=== PATIENT | female | born 1995 | race Caucasian/White ===

== ENCOUNTER 2017-01-11 22:40 | Emergency (ER) | payer BC ==
--- NOTE | 2017-01-11 23:04 | ED Physician Documentation ---
PD HPI UPPER EXT INJURY - Stated complaint Stated Complaint: R ARM INJURY - Chief complaint Chief Complaint: Ext Problem - History obtained from History obtained from: Patient - History of Present Illness Location: Right, Shoulder, Arm Type of injury: Blunt / blow Where injury occurred: Home Timing - onset: How many hours ago (1) Timing - details: Abrupt onset Improved by: Immobilization Worsened by: Moving, Palpating Associated symptoms: Tingling, Discolored Contributing factors: No: Anticoagulated, Prior ortho surgery Similar symptoms before: Has not had sx before Recently seen: Not recently seen - Additonal information Additional information: Patient is a 21 year old female with a history of ptsd and anxiety who is presenting to the emergency department for left arm pain. patient states that someone was sliding down a banister and slid off and the patient tried to catch him and hurt her arm. She states that the person weighed approximately 190lbs. Patient denied any head trauma, loc or pain anywhere else in her body. Review of Systems Constitutional: denies: Fever, Chills Eyes: denies: Decreased vision Ears: denies: Ear pain, Drainage/discharge Nose: denies: Rhinorrhea / runny nose, Congestion, Epistaxis Cardiac: denies: Chest pain / pressure, Palpitations Respiratory: denies: Cough GI: denies: Abdominal Pain, Nausea, Vomiting Skin: reports: Rash, Other (ecchymosis). denies: Laceration (s) Musculoskeletal: reports: Extremity pain. denies: Neck pain, Back pain, Joint pain, Extremity swelling Neurologic: reports: Numbness. 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: None : None HEENT: None Psych: Depression, Anxiety Musculoskeletal: None Derm: None - Past Surgical History Past Surgical History: Yes - Present Medications Home Medications: Ambulatory Orders Medication Instructions Recorded Confirmed Alprazolam [Xanax] 0.25 mg PO BID 03/17/15 01/11/17 Levothyroxine [Synthroid] 25 mcg PO BID 03/17/15 01/11/17 LORazepam [Ativan] 0.5 - 1 mg PO Q6H PRN #15 tablet 03/18/15 Dextroamphetamine/Amphetamine 10 mg PO BID 06/08/16 08/11/17 [Adderall 10 mg Tablet] LORazepam [Ativan] 0.5 mg PO BID PRN #20 tablet 11/09/15 Lorazepam [Ativan] 1 mg PO TID PRN #10 tablet 11/16/15 - Allergies Allergies/Adverse Reactions: Allergies Allergy/AdvReac Type Severity Reaction Status Date / Time bupropion Allergy Anaphylaxis Verified 01/11/17 22:50 ibuprofen Allergy Anaphylaxis Verified 01/11/17 22:50 - Social History Does the pt smoke?: Yes Smoking Status: Current every day smoker Does the pt drink ETOH?: No Does the pt have substance abuse?: No - Immunizations Immunizations are current?: Yes - POLST Patient has POLST: No PD ED PE NORMAL - Vitals Vital signs reviewed: Yes - General General: Alert and oriented X 3, Well developed/nourished - HEENT HEENT: Atraumatic, PERRL - Neck Neck: No bony TTP - Respiratory Respiratory: No respiratory distress - Abdomen Abdomen: Non distended - Neuro Neuro: Alert and oriented X 3, Normal speech - Psych Psych: Normal mood, Normal affect PD ED PE EXPANDED - Cardiac Cardiac: Tachy - Extremities Extremities: Right shoulder (tenderness to palpation of right shoulder, full rom ), Right elbow (tenderness, full rom), Right hand (tenderness and swelling of right hand) Results - Vitals Vitals: Vital Signs - 24 hr 01/11/17 22:48 Temperature 36.7 C Heart Rate 133 H Respiratory 17 Rate Blood Pressure 163/94 H O2 Saturation 99 Oxygen O2 Source Room air - Rads (name of study) shoulder x-ray Radiology: Final report received (no acute fracture or dislocation), EMP read contemporaneously elbow x-ray Radiology: Final report received, EMP read contemporaneously (no acute fracture or dislocaiton) hand x-ray Radiology: Final report received, EMP read contemporaneously (no acute fracture or dislocation) PD MEDICAL DECISION MAKING - ED course Complexity details: reviewed old records, reviewed results, re-evaluated patient , considered differential, d/w patient ED course: Patient was seen and examined at bedside. patient was sent for imaging. when patient returned patient was treated with tylenol and given ice. films were reviewed. there was no acute fracture or dislocation. Patient required no further work up and was stable for discharge [facility] outpatient follow up. Departure - Departure Clinical Impression: Muscle strain Condition: Good Instructions: ED Strain Muscle Ext Follow-Up: Zurdo Vogel MD [Primary Care Provider] - As Needed Comments: Your diagnostics today were within normal limits. there was no acute fracture or dislocation. you should ice your wounds and take tylenol for pain. You should follow up with your pmd if your symptoms persist for the next few weeks.
[2017-01-11] MEDS ORDERED: ACETAMINOPHEN 500 MG TABLET PO STA (23:43)
[2017-01-11] MEDS ORDERED: ACETAMINOPHEN 500 MG TABLET PO ONE (23:55)
--- NOTE | 2017-01-11 23:56 | XRAY Preliminary Report ---
Exam: XR Elbow 2 View RT IMPRESSION: 1. No fracture or dislocation seen. [facility] SITE ID: [id number]
--- NOTE | 2017-01-11 23:58 | XRAY Preliminary Report ---
Exam: XR Hand 3 View RT IMPRESSION: 1. No acute fracture or dislocation seen. [facility] SITE ID: [id number]
--- NOTE | 2017-01-11 23:58 | XRAY Preliminary Report ---
Exam: XR Shoulder 3 View RT IMPRESSION: 1. No acute abnormality seen in the shoulder. [facility] SITE ID: [id number]
--- NOTE | 2017-01-11 23:59 | XRAY Report ---
EXAM: RIGHT ELBOW RADIOGRAPHY EXAM DATE: 01/11/2017 11:03 PM. CLINICAL HISTORY: Pain after injury. COMPARISON: None. TECHNIQUE: 2 views. FINDINGS: Bones: No acute fracture seen. Joints: No dislocation. Joint spaces appear intact. No joint effusion identified. Soft Tissues: Grossly unremarkable. IMPRESSION: 1. No fracture or dislocation seen. [facility] Referring Provider Line: [phone] SITE ID: [id number]
--- NOTE | 2017-01-12 | XRAY Report ---
EXAM: RIGHT HAND RADIOGRAPHY EXAM DATE: 01/11/2017 11:12 PM. CLINICAL HISTORY: Pain after injury. COMPARISON: None. TECHNIQUE: 3 views. FINDINGS: Bones: No acute fracture seen. Joints: No dislocation. Joint spaces appear intact. Soft Tissues: Mild soft tissue swelling. IMPRESSION: 1. No acute fracture or dislocation seen. [facility] Referring Provider Line: [phone] SITE ID: [id number]
--- NOTE | 2017-01-12 00:01 | XRAY Report ---
EXAM: RIGHT SHOULDER RADIOGRAPHY EXAM DATE: 01/11/2017 11:03 PM. CLINICAL HISTORY: Pain after injury. COMPARISON: None. TECHNIQUE: 3 views. FINDINGS: Bones: No acute fracture seen. Joints: The glenohumeral and acromioclavicular joints are preserved. Soft tissues: Visualized hemithorax is unremarkable. IMPRESSION: 1. No acute abnormality seen in the shoulder. [facility] Referring Provider Line: [phone] SITE ID: [id number]
[2017-01-12 00:35] VITALS: BP 137/87
== END 2017-01-12 00:26 | disposition home or self-care (01) ==
LOC: ED 22:40
DX: S46.911A Strain of unspecified muscle, fascia and tendon at shoulder and upper arm level, right arm, initial encounter (principal); X50.0XXA Overexertion from strenuous movement or load, initial encounter; Y92.019 Unspecified place in single-family (private) house as the place of occurrence of the external cause; F41.9 Anxiety disorder, unspecified; E03.9 Hypothyroidism, unspecified; F17.200 Nicotine dependence, unspecified, uncomplicated
CPT/HCPCS: 73030; 73070; 73130; 99283; A9270

== ENCOUNTER 2017-02-11 16:42 | Outpatient (CLI) | payer BC ==
[2017-02-11 18:46] LABS: BILIRUBIN,URINE NEGATIVE (NEGATIVE)
[2017-02-11 18:49] LABS: UR CULTURE IF IND INDICATED
== END 2017-02-11 16:43 | disposition home or self-care (01) ==
LOC: LAB.R 16:42
PROVIDERS: ATTEND Physician Assistant Medical
DX: R30.0 Dysuria (principal)
CPT/HCPCS: 81001; 87086

== ENCOUNTER 2017-03-09 03:25 | Emergency (ER) | payer BC ==
[2017-03-09 03:36] VITALS: BP 126/81
--- NOTE | 2017-03-09 03:44 | ED Physician Documentation ---
PD HPI LOWER EXT INJURY - Stated complaint Stated Complaint: R ANKLE INJURY/PAIN - Chief complaint Chief Complaint: Trauma Ext - History obtained from History obtained from: Patient, Friend (BF) - History of Present Illness PD HPI LOW EXT INJURY LOCATION: Right, Knee, Ankle, Foot Type of injury: Fall Where injury occurred: Home Timing - onset: Today (tonight) Timing - duration: Hours Timing - details: Abrupt onset Pain level now: 6 Improved by: Rest Worsened by: Moving, Palpating Associated symptoms: Swelling Recently seen: Emergency Dept (2 months ago for extremity injury) - Additional information Additional information: c/o right knee, ankle, and foot pain after tripping and falling while walking her dog earlier tonight. 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 : None HEENT: None Psych: Depression, Anxiety Musculoskeletal: None Derm: None - Past Surgical History Past Surgical History: Yes - Present Medications Home Medications: Ambulatory Orders Medication Instructions Recorded Confirmed Alprazolam [Xanax] 0.25 mg PO BID 03/17/15 03/09/17 Levothyroxine [Synthroid] 25 mcg PO BID 03/17/15 03/09/17 Escitalopram [Lexapro] 1 tab PO DAILY 03/09/17 03/09/17 Hydrocodone/Acetaminophen [Lortab 5 - 10 ml PO Q6HR PRN #60 solution 03/09/17 10 mg-300 mg/15 ml Elxr] - Allergies Allergies/Adverse Reactions: Allergies Allergy/AdvReac Type Severity Reaction Status Date / Time bupropion Allergy Anaphylaxis Verified 03/09/17 03:30 ibuprofen Allergy Anaphylaxis Verified 03/09/17 03:30 - Social History Does the pt smoke?: Yes Smoking Status: Current every day smoker Does the pt drink ETOH?: No Does the pt have substance abuse?: No - Immunizations Immunizations are current?: Yes - POLST Patient has POLST: No PD ED PE NORMAL - Vitals Vital signs reviewed: Yes - General General: No acute distress, Well developed/nourished, Other (drowsy, difficult to awaken fully and consistently ) - Derm Derm: Normal color, Warm and dry - Neuro Neuro: No motor deficit, No sensory deficit PD ED PE EXPANDED - Extremities Extremities: Tenderness, Limited ROM, Swelling, Right knee, Right ankle Results - Vitals Vitals: Vital Signs - 24 hr 03/09/17 03:32 Temperature 36.0 C L Heart Rate 116 H Respiratory 18 Rate Blood Pressure 126/81 H O2 Saturation 98 Oxygen O2 Source Room air - Rads (name of study) right ankle xrays Radiology: Prelim report reviewed, See rad report right knee xrays Radiology: Prelim report reviewed, See rad report PD MEDICAL DECISION MAKING - ED course Complexity details: reviewed old records, reviewed results, re-evaluated patient , considered differential, d/w patient ED course: on initial evaluation, I found the patient drowsy and difficult to awaken and keep awake. During ED stay, she became increasingly awake and alert. She was quite anxious at times. She complained of nausea and had episode of emesis, given zofran with improvement. Xray results were reviewed with patient. I offered pain medication, she says she is allergic to ibuprofen and has difficulty swallowing pills; lortab elixr was given. crutches and knee immobilizer provided Departure - Departure Disposition: 01 Home, Self Care Clinical Impression: Ankle sprain Qualifiers: Encounter type: initial encounter Involved ligament of ankle: unspecified ligament Laterality: right Qualified Code(s): S93.401A - Sprain of unspecified ligament of right ankle, initial encounter Right knee sprain Qualifiers: Encounter type: initial encounter Involved ligament of knee: unspecified ligament Qualified Code(s): S83.91XA - Sprain of unspecified site of right knee , initial encounter Condition: Good Instructions: ED Sprain Ankle W X Ray, ED Crutch Walking, ED Immobilizer Knee, ED Sprain Knee Follow-Up: Froilan Reich MD [Provider Admit Priv/Credential] - Within 1 week Prescriptions: Hydrocodone/Acetaminophen [Lortab 10 mg-300 mg/15 ml Elxr] 5 - 10 ml PO Q6HR PRN #60 solution PRN Reason: Pain Discharge Date/Time: 03/09/17 07:27
--- NOTE | 2017-03-09 05:09 | XRAY Preliminary Report ---
Exam: XR Ankle 3 View RT IMPRESSION: Moderate lateral soft tissue swelling without evident displaced fracture. [facility] SITE ID: [id number]
--- NOTE | 2017-03-09 05:11 | XRAY Report ---
EXAM: RIGHT ANKLE RADIOGRAPHY EXAM DATE: 03/09/2017 04:37 AM. CLINICAL HISTORY: Fall, injury to the right ankle. Generalized ankle pain. COMPARISON: None. TECHNIQUE: 3 views. FINDINGS: Bones: Normal. No fractures or bone lesions. Joints: Normal. No effusion. No subluxations. The ankle mortise is normally aligned. Soft Tissues: Moderate lateral soft tissue swelling. IMPRESSION: Moderate lateral soft tissue swelling without evident displaced fracture. [facility] Referring Provider Line: [phone] SITE ID: [id number]
[2017-03-09] MEDS ORDERED: ONDANSETRON ODT 4 MG TABLET TL STA (06:12)
[2017-03-09] MEDS ORDERED: ONDANSETRON ODT 4 MG TABLET ONE (06:21)
--- NOTE | 2017-03-09 06:41 | XRAY Preliminary Report ---
Exam: XR Knee 4 View RT IMPRESSION: Normal knee radiography. [facility] SITE ID: [id number]
--- NOTE | 2017-03-09 06:41 | XRAY Report ---
EXAM: RIGHT KNEE RADIOGRAPHY EXAM DATE: 03/09/2017 06:03 AM. CLINICAL HISTORY: Injury, pain, tenderness. COMPARISON: None. TECHNIQUE: 3 views. FINDINGS: Bones: Normal. No fractures or bone lesions. Joints: Normal. No effusion. No subluxations. Soft Tissues: Normal. No soft tissue swelling. IMPRESSION: Normal knee radiography. [facility] Referring Provider Line: [phone] SITE ID: [id number]
[2017-03-09] MEDS ORDERED: HYDROcodone/ACETAM 7.5 MG/325 MG 15 ML UDC PO STA (07:01)
[2017-03-09] MEDS ORDERED: HYDROcodone/ACETAM 7.5 MG/325 MG 15 ML UDC PO ONE (07:20)
== END 2017-03-09 07:27 | disposition home or self-care (01) ==
LOC: ED 03:25
DX: S83.91XA Sprain of unspecified site of right knee, initial encounter (principal); S93.401A Sprain of unspecified ligament of right ankle, initial encounter; W01.0XXA Fall on same level from slipping, tripping and stumbling without subsequent striking against object, initial encounter; Y93.K1 Activity, walking an animal; R11.0 Nausea; F17.200 Nicotine dependence, unspecified, uncomplicated; Y92.009 Unspecified place in unspecified non-institutional (private) residence as the place of occurrence of the external cause
CPT/HCPCS: 29530; 73564; 73610; 99283; 99284; A9270; Q0162

== ENCOUNTER 2017-03-28 08:00 | Outpatient (CLI) | payer BC | END 2017-03-28 08:01 | disposition home or self-care (01) | LOC: LAB.R 08:00 | PROVIDERS: ATTEND Obstetrics & Gynecology | DX: R82.99 Other abnormal findings in urine (principal) | CPT/HCPCS: 87086 ==

== ENCOUNTER 2017-07-16 08:00 | Outpatient (CLI) | payer BC | END 2017-07-16 23:59 | disposition home or self-care (01) | LOC: LAB.R 08:00 | PROVIDERS: ATTEND Obstetrics & Gynecology | DX: Z11.3 Encounter for screening for infections with a predominantly sexual mode of transmission (principal) | CPT/HCPCS: 87491; 87591 ==

== ENCOUNTER 2017-07-25 10:48 | Emergency (ER) | payer BC ==
[2017-07-25 11:22] LABS: BASOPHILS % (AUTO) 0.2 %; EOSINOPHILS # (AUTO) 0.1 10^3/uL (0.0-0.7); EOSINOPHILS % (AUTO) 0.7 %; HGB - HEMOGLOBIN 13.3 g/dL (12.0-16.0); LYMPHOCYTES # (AUTO) 1.2 10^3/uL (1.5-3.5); LYMPHOCYTES % (AUTO) 14.4 %; MEAN CORPUSCULAR HEMOGLOBIN 33.4 pg (27.0-31.0); MEAN CORPUSCULAR HGB CONC 35.5 g/dL (32.0-36.0); MEAN CORPUSCULAR VOLUME 94.1 fL (81.0-99.0); MEAN PLATELET VOLUME 7.6 fL (7.9-10.8); MONOCYTES # (AUTO) 0.6 10^3/uL (0.0-1.0); MONOCYTES % (AUTO) 7.3 %; NEUTROPHILS # (AUTO) 6.5 10^3/uL (1.5-6.6); NEUTROPHILS % (AUTO) 77.4 %; PLT - PLATELET COUNT 221 10^3/uL (130-450); RED BLOOD COUNT 3.99 10^6/uL (4.20-5.40); RED CELL DISTRIBUTION WIDTH 13.1 % (12.0-15.0); WHITE BLOOD COUNT 8.3 x10^3/uL (4.8-10.8)
[2017-07-25 11:27] LABS: BILIRUBIN,URINE NEGATIVE (NEGATIVE); GLUCOSE, URINE (UA) NEGATIVE (NEGATIVE); KETONES,URINE (UA) NEGATIVE (NEGATIVE); LEUKOCYTE ESTERASE, URINE MODERATE (NEGATIVE); NITRITE,URINE NEGATIVE (NEGATIVE); OCCULT BLOOD,URINE TRACE-INTA (NEGATIVE); PH,URINE 6.5 PH (5.0-7.5); PROTEIN,URINE TRACE mg/dL (NEGATIVE); UROBILINOGEN,URINE 0.2 (NORMAL) E.U./dL (NORMAL)
[2017-07-25 11:29] LABS: CLARITY,URINE CLOUDY (CLEAR)
[2017-07-25 11:31] LABS: ALBUMIN 3.8 g/dL (3.2-5.5); BILIRUBIN,TOTAL 0.5 mg/dL (0.2-1.0); CALCIUM 8.8 mg/dL (8.5-10.3); CREATININE 0.5 mg/dL (0.4-1.0); TOTAL PROTEIN 7.7 g/dL (6.7-8.2)
[2017-07-25 11:36] LABS: BACTERIA,URINE Many /HPF (None Seen); RBC,URINE 0-5 /HPF (0-5); SQUAMOUS EPITHELIAL CELL,UR FEW Squamous (<= Few)
[2017-07-25] MEDS ORDERED: MORPHINE 2 MG/ML CARPUJECT IVP STA (12:26)
[2017-07-25] MEDS ORDERED: PROMETHAZINE INJ 25 MG in SODIUM CHLORIDE 0.9% 50 ML IV STA (12:28)
[2017-07-25] MEDS ORDERED: SODIUM CHLORIDE 0.9% 1,000 ML IV ONE (14:15)
[2017-07-25] MEDS ORDERED: ACETAMINOPHEN 1,000 MG/100 ML 100 ML IV STA (14:15)
[2017-07-25] MEDS ORDERED: cefTRIAXone 1 GM in SODIUM CHLORIDE 0.9% MINIBAG 100 ML IV STA (15:14)
[2017-07-25] MEDS ORDERED: HYDROcodone/ACETAM 7.5 MG/325 MG 15 ML UDC PO STA (15:32)
--- NOTE | 2017-07-25 15:43 | ED Physician Documentation ---
History of Present Illness - Stated complaint Stated Complaint: FEMALE /BLEEDING - Chief complaint Chief Complaint: Abd Pain - Additonal information Additional information: hx from pt O+ LMP 05/24 plans to have a termination of August 01 states she was [facility] and had a very abn sono - states there was an abnormal mass near her uterus and that they were not sure if she had twins she was supposed to have more testing but had flu like sx and so missed that now she comes to the ER with NV R flank to RLQ pain and vag bleeding which is light at this moment in time Review of Systems Constitutional: denies: Fever GI: reports: Abdominal Pain, Nausea, Vomiting : reports: Vaginal bleeding, Now EGA Musculoskeletal: reports: Back pain Endocrine: denies: Easy bruising / bleeding Immunocompromised: denies: Immunocompromised PD PAST MEDICAL HISTORY - Past Medical History Past Medical History: Yes Cardiovascular: None Respiratory: None Neuro: None Endocrine/Autoimmune: HyPOthyroidism GI: None 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 : None HEENT: None Psych: Depression, Anxiety Musculoskeletal: None Derm: None Other Past Medical History: Pre-diabetic - Past Surgical History Past Surgical History: Yes - Present Medications Home Medications: Ambulatory Orders Medication Instructions Recorded Confirmed Alprazolam [Xanax] 0.25 mg PO BID 03/17/15 07/25/17 Levothyroxine [Synthroid] 25 mcg PO BID 03/17/15 07/25/17 Escitalopram [Lexapro] 1 tab PO DAILY 03/09/17 07/25/17 Cephalexin Suspension [Keflex] 500 mg PO QID 10 Days #400 ml 07/25/17 Hydrocodone/Acetaminophen [Lortab 10 ml PO Q6H PRN #120 ml 07/25/17 10 mg-300 mg/15 ml Elxr] - Allergies Allergies/Adverse Reactions: Allergies Allergy/AdvReac Type Severity Reaction Status Date / Time bupropion Allergy Anaphylaxis Verified 07/25/17 10:57 ibuprofen Allergy Anaphylaxis Verified 07/25/17 10:57 - Social History Does the pt smoke?: Yes Smoking Status: Former smoker Does the pt drink ETOH?: No Does the pt have substance abuse?: No - Immunizations Immunizations are current?: Yes - POLST Patient has POLST: No PD ED PE NORMAL - Vitals Vital signs reviewed: Yes - Cardiac Cardiac: RRR - Respiratory Respiratory: No respiratory distress, Clear bilaterally - Abdomen Abdomen: Soft, Other (mod low R TTP no rebound or guarding ? rovsing) - Back Back: No: No CVA TTP (+ R CVA TTP) - Derm Derm: Normal color - Neuro Neuro: Alert and oriented X 3 Results - Vitals Vitals: Vital Signs - 24 hr 07/25/17 07/25/17 07/25/17 10:52 12:30 14:48 Temperature 36.7 C 36.2 C L Heart Rate 110 H 110 H 114 H Respiratory 16 16 16 Rate Blood Pressure 138/82 H 117/75 130/66 O2 Saturation 100 100 99 07/25/17 07/25/17 15:50 15:51 Temperature 36.2 C L Heart Rate 109 H Respiratory 16 Rate Blood Pressure 136/80 H O2 Saturation 100 Oxygen O2 Source Room air - Labs Labs: Laboratory Tests 07/25/17 07/25/17 07/25/17 11:10 11:10 11:10 WBC 8.3 RBC 3.99 L Hgb 13.3 Hct 37.5 MCV 94.1 MCH 33.4 H MCHC 35.5 RDW 13.1 Plt Count 221 MPV 7.6 L Neut # 6.5 Lymph # 1.2 L Bucks # 0.6 Eos # 0.1 Baso # 0.0 Absolute Nucleated RBC 0.00 Nucleated RBC % 0.0 Sodium 136 Potassium 3.6 Chloride 104 Carbon Dioxide 21 Anion Gap 11.0 BUN 5 L Creatinine 0.5 Estimated GFR (MDRD) 154 Glucose 114 H Calcium 8.8 Total Bilirubin 0.5 AST 19 ALT 22 Alkaline Phosphatase 24 L Total Protein 7.7 Albumin 3.8 Globulin 3.9 Albumin/Globulin Ratio 1.0 Lipase 11 L HCG, Quant Urine Color Urine Clarity Urine pH Ur Specific [place] Urine Protein Urine Glucose (UA) Urine Ketones Urine Occult Blood Urine Nitrite Urine Bilirubin Urine Urobilinogen Ur Leukocyte Esterase Urine RBC Urine WBC Ur Squamous Epith Cells Urine Bacteria Ur Microscopic Review Urine Culture Comments Blood Type O POSITIVE 07/25/17 07/25/17 11:10 11:10 WBC RBC Hgb Hct MCV MCH MCHC RDW Plt Count MPV Neut # Lymph # Bucks # Eos # Baso # Absolute Nucleated RBC Nucleated RBC % Sodium Potassium Chloride Carbon Dioxide Anion Gap BUN Creatinine Estimated GFR (MDRD) Glucose Calcium Total Bilirubin AST ALT Alkaline Phosphatase Total Protein Albumin Globulin Albumin/Globulin Ratio Lipase HCG, Quant 28434.00 Urine Color YELLOW Urine Clarity CLOUDY Urine pH 6.5 Ur Specific [place] 1.015 Urine Protein TRACE Urine Glucose (UA) NEGATIVE Urine Ketones NEGATIVE Urine Occult Blood TRACE-INTA Urine Nitrite NEGATIVE Urine Bilirubin NEGATIVE Urine Urobilinogen 0.2 (NORMAL) Ur Leukocyte Esterase MODERATE H Urine RBC 0-5 Urine WBC >25 H Ur Squamous Epith Cells FEW Squamous Urine Bacteria Many H Ur Microscopic Review INDICATED Urine Culture Comments INDICATED Blood Type - Rads (name of study) abd sono Radiology: See rad report (nl right kidney, appendix not seen but no secondary signs of appendicitis) OB sono Radiology: See rad report (single live IUP, size c.w LMP 05/24, no perigestational hemorrhage, L corpus luteum cyst) PD MEDICAL DECISION MAKING - ED course ED course: + live IUP, no ectopic, corpus luteum cyst is on the L, no signs of appendicitis on sono, and she has a UTI which makes pyelo the most likely cause of her sx so do not feel further imaging such as CT is needed - furthermore pt is pregnanat with live IUP, states planning for TOP but still feel best to avoid radiation pt states bleeding has slowed, cervix is closed on sono, has already had OB care so will have had cultures done - so defer pelvic for now is tachy will give IVF and IV antibiotics and dc if VS better, else consider admit HR noted - better after tx in ED - still little tachy - pt tells nurse her H is always fast because she is anxious, she feels ready to go home Departure - Departure Disposition: 01 Home, Self Care Clinical Impression: Pyelonephritis Qualifiers: Weeks of gestation: 9 weeks Qualified Code(s): Z3A.09 - 9 weeks gestation of Condition: Good Instructions: Pyelonephritis Dc Follow-Up: Zurdo Jiménez MD [Provider Admit Priv/Credential] - Prescriptions: Cephalexin Suspension [Keflex] 500 mg PO QID 10 Days #400 ml Hydrocodone/Acetaminophen [Lortab 10 mg-300 mg/15 ml Elxr] 10 ml PO Q6H PRN # 120 ml PRN Reason: Severe Pain Comments: You have a kidney infection. This is a serious infection, especially when you are We have you IV fluids and antibiotics in the ER and I have prescribed antibiotics for you to take at home as well. If the pain is mild take plain liquid tylenol, if the pain is severe may take liquid hydrocodone - but be sure not to exceed 3000 mg of Tylenol per 24 hr period Very close follow up is important - you need to be seen again Saturday at latest You should return to the ER if worse over the weekend Discharge Date/Time: 07/25/17 16:06
[2017-07-25 15:51] VITALS: BP 136/80
--- NOTE | 2017-07-25 17:35 | Ultrasound Report ---
LIMITED ABDOMINAL ULTRASOUND: 07/25/2017 CLINICAL INDICATION: Right-sided pain, , evaluate appendix and right kidney. TECHNIQUE: Real-time scanning was performed with passenger service representative static images obtained. FINDINGS: The right kidney measures 10.9 cm. No hydronephrosis is present. No focal renal lesion or perinephric collection is seen. Scanning of the right lower quadrant did not demonstrate the appendix. No free fluid or abnormal fluid collection is seen in the right lower quadrant. IMPRESSION: NORMAL RIGHT KIDNEY. NONVISUALIZATION OF THE APPENDIX, BUT NO SECONDARY FINDINGS OF ACUTE APPENDICITIS. TD: 07/25/2017 17:25
--- NOTE | 2017-07-25 17:36 | Ultrasound Report ---
FIRST TRIMESTER OB ULTRASOUND WITH TRANSVAGINAL: 07/25/2017 CLINICAL INDICATION: Pelvic pain, , history of bleeding. TECHNIQUE: Transabdominal pelvic ultrasound performed for global evaluation. Transvaginal pelvic ultrasound performed for detailed evaluation. Real-time scanning performed and static images obtained. FINDINGS: There is a single viable intrauterine gestation. heart rate is 196 BPM. By crown rump length, the fetus measures 8 weeks 4 days (8 weeks 6 days by LMP). No perigestational hemorrhage is seen. The right ovary is unremarkable, measuring 2.2 x 2.0 x 1.5 cm. The left ovary measures 4.5 x 3.0 x 2.4 cm, and demonstrates a 2.2 cm corpus luteum. No free fluid is present. IMPRESSION: SINGLE VIABLE INTRAUTERINE GESTATION, WITH SIZE IN KEEPING WITH LMP DATING. NO EVIDENCE OF PERIGESTATIONAL HEMORRHAGE. LEFT CORPUS LUTEUM. TD: 07/25/2017 17:28 MTDD
== END 2017-07-25 16:06 | disposition home or self-care (01) ==
LOC: ED 10:48
DX: O23.01 Infections of kidney in pregnancy, first trimester (principal); O34.81 Maternal care for other abnormalities of pelvic organs, first trimester; N83.12 Corpus luteum cyst of left ovary; E03.9 Hypothyroidism, unspecified; Z3A.09 9 weeks gestation of pregnancy; Z87.891 Personal history of nicotine dependence
CPT/HCPCS: 36415; 76705; 76801; 76817; 80053; 81001; 83690; 84702; 85025; 86900; 86901; 87086; 87181; 96365; 96367; 96375; 99284; A9270; J0131; J7040; 81003

== ENCOUNTER 2017-11-04 08:00 | Outpatient (CLI) | payer BC | END 2017-11-04 08:01 | disposition home or self-care (01) | LOC: LAB.R 08:00 | PROVIDERS: ATTEND Internal Medicine | DX: N10 Acute pyelonephritis (principal) | CPT/HCPCS: 87077; 87086; 87181 ==

== ENCOUNTER 2018-06-10 20:12 | Outpatient (CLI) | payer BC ==
--- NOTE | 2018-06-10 22:39 | Ultrasound Report ---
Reason: EXCESSIVE FREQUENT MENSTRUATION W/IRREGULAR CYCL Procedure Date: 06/10/2018 Accession Number: [id number] / [id number] Procedure: US - Pelvic w/Transvaginal CPT Code: FULL RESULT: EXAM: PELVIC ULTRASOUND EXAM DATE: 06/10/2018 08:57 PM. CLINICAL HISTORY: EXCESSIVE FREQUENT MENSTRUATION W/IRREGULAR CYCL. COMPARISON: None. TECHNIQUE: Realtime transabdominal pelvic scan performed to identify the uterus and adnexa and as an overview of other pelvic structures, followed by transvaginal scan to provide greater detail of the uterus and adnexa, with static image documentation. FINDINGS: Uterus: 6.3 x 3.2 x 4.1 cm, volume 43 cc. Anteverted position. Normal overall size and echotexture. Masses: None. Endometrium: 5 mm. There is some fluid in the endometrial canal. Cervix: Unremarkable. Right Ovary: 3.1 x 1.7 x 3.0 cm, volume 8.3 cc. Normal echotexture and blood flow. Left Ovary: 3.5 x 2.8 x 2.8 cm, volume 13.95 cc. Normal echotexture and blood flow. There is a dominant follicle measuring 14 mm x 13 mm x 15 mm. Free Fluid: None. Other: None. IMPRESSION: Unremarkable pelvic ultrasound. Small amount of fluid within the endometrial canal. [facility]
== END 2018-06-10 20:13 | disposition home or self-care (01) ==
LOC: DI 20:12
PROVIDERS: ATTEND Obstetrics & Gynecology
DX: N92.1 Excessive and frequent menstruation with irregular cycle (principal)
CPT/HCPCS: 76830; 76856

== ENCOUNTER 2018-07-05 05:43 | Outpatient (CLI) | payer BC | END 2018-07-05 05:44 | disposition critical access hospital (66) | LOC: EMS 05:43 | PROVIDERS: ATTEND Surgery | DX: M54.2 Cervicalgia (principal); M54.6 Pain in thoracic spine; W10.9XXA Fall (on) (from) unspecified stairs and steps, initial encounter; S00.83XA Contusion of other part of head, initial encounter; Y29.XXXA Contact with blunt object, undetermined intent, initial encounter; Z04.89 Encounter for examination and observation for other specified reasons | CPT/HCPCS: A0425; A0429 ==

== ENCOUNTER 2018-07-05 06:16 | Emergency (ER) | payer OTHER, BC ==
[2018-07-05] MEDS ORDERED: LORazepam 2 MG/ML VIAL IVP STA ×2 (06:29→07:10)
[2018-07-05] MEDS ORDERED: MORPHINE 2 MG/ML CARPUJECT IVP STA ×2 (06:30→07:10)
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
[2018-07-05] MEDS ORDERED: ONDANSETRON ODT 4 MG TABLET TL STA ×2 (06:38→10:38)
[2018-07-05 06:47] LABS: BASOPHILS % (AUTO) 0.7 %; EOSINOPHILS # (AUTO) 0.1 10^3/uL (0.0-0.7); HGB - HEMOGLOBIN 14.2 g/dL (12.0-16.0); LYMPHOCYTES # (AUTO) 1.8 10^3/uL (1.5-3.5); LYMPHOCYTES % (AUTO) 31.2 %; MEAN CORPUSCULAR HEMOGLOBIN 32.6 pg (27.0-31.0); MEAN CORPUSCULAR HGB CONC 34.5 g/dL (32.0-36.0); MEAN CORPUSCULAR VOLUME 94.5 fL (81.0-99.0); MEAN PLATELET VOLUME 7.3 fL (7.9-10.8); MONOCYTES # (AUTO) 0.5 10^3/uL (0.0-1.0); MONOCYTES % (AUTO) 8.8 %; NEUTROPHILS # (AUTO) 3.3 10^3/uL (1.5-6.6); NEUTROPHILS % (AUTO) 57.3 %; PLT - PLATELET COUNT 262 10^3/uL (130-450); RED BLOOD COUNT 4.34 10^6/uL (4.20-5.40); WHITE BLOOD COUNT 5.7 x10^3/uL (4.8-10.8)
[2018-07-05 07:09] LABS: ALBUMIN 4.3 g/dL (3.2-5.5); ALBUMIN/GLOBULIN RATIO 1.4 (1.0-2.2); ALKALINE PHOSPHATASE 38 IU/L (42-121); ALT ALANINE AMINOTRANSFERASE 85 IU/L (10-60); AST ASPARTATE AMINOTRANSFERASE 64 IU/L (10-42); BILIRUBIN,TOTAL 0.4 mg/dL (0.2-1.0); BUN - BLOOD UREA NITROGEN 13 mg/dL (6-20); CALCIUM 9.7 mg/dL (8.5-10.3); CARBON DIOXIDE - CO2 22 mmol/L (21-32); CHLORIDE 105 mmol/L (101-111); GFR - MDRD 69 (>89); GLUCOSE 110 mg/dL (70-100); LIPASE 27 U/L (22-51); SODIUM 139 mmol/L (135-145); TOTAL PROTEIN 7.4 g/dL (6.7-8.2)
[2018-07-05] MEDS ORDERED: SODIUM CHLORIDE 0.9% 1,000 ML IV ONE (07:10)
[2018-07-05] MEDS ORDERED: ACETAMINOPHEN 1,000 MG/100 ML 100 ML IV STA (07:11)
[2018-07-05 07:17] LABS: HCG,QUALITATIVE BLOOD NEGATIVE
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
[2018-07-05 10:25] VITALS: BP 128/76
[2018-07-05] MEDS ORDERED: oxyCODONE 5 MG TABLET PO STA (10:37)
[2018-07-05] MEDS ORDERED: ULIPRISTAL ACETATE 30 MG TABLET PO STA (10:37)
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
== END 2018-07-05 10:57 | disposition home or self-care (01) ==
LOC: EDUNIT# → EDBD → EEVIPCON 06:16 → ED 06:16
DX: M54.2 Cervicalgia (principal); R51 Headache; S09.90XA Unspecified injury of head, initial encounter; W01.0XXA Fall on same level from slipping, tripping and stumbling without subsequent striking against object, initial encounter; W22.8XXA Striking against or struck by other objects, initial encounter; T74.22XA Child sexual abuse, confirmed, initial encounter
CPT/HCPCS: 0133C; 36415; 70450; 70486; 72100; 72125; 80053; 83690; 84703; 85025; 87491; 87591; 96365; 96375; 96376; 99283; A9270; J0131; J2060; Q0162

== ENCOUNTER 2018-07-26 23:27 | Emergency (ER) | payer BC ==
[2018-07-27 00:29] LABS: BASOPHILS % (AUTO) 0.4 %; EOSINOPHILS # (AUTO) 0.1 10^3/uL (0.0-0.7); EOSINOPHILS % (AUTO) 1.5 %; LYMPHOCYTES # (AUTO) 1.5 10^3/uL (1.5-3.5); LYMPHOCYTES % (AUTO) 26.6 %; MEAN CORPUSCULAR HEMOGLOBIN 32.7 pg (27.0-31.0); MEAN CORPUSCULAR HGB CONC 35.2 g/dL (32.0-36.0); MEAN CORPUSCULAR VOLUME 92.8 fL (81.0-99.0); MONOCYTES # (AUTO) 0.7 10^3/uL (0.0-1.0); MONOCYTES % (AUTO) 11.5 %; NEUTROPHILS # (AUTO) 3.5 10^3/uL (1.5-6.6); PLT - PLATELET COUNT 266 10^3/uL (130-450); RED BLOOD COUNT 4.27 10^6/uL (4.20-5.40); RED CELL DISTRIBUTION WIDTH 13.1 % (12.0-15.0); WHITE BLOOD COUNT 5.8 x10^3/uL (4.8-10.8)
[2018-07-27 00:38] LABS: BILIRUBIN,URINE NEGATIVE (NEGATIVE); GLUCOSE, URINE (UA) NEGATIVE (NEGATIVE); KETONES,URINE (UA) 15 mg/dL (NEGATIVE); LEUKOCYTE ESTERASE, URINE NEGATIVE (NEGATIVE); NITRITE,URINE POSITIVE (NEGATIVE); OCCULT BLOOD,URINE NEGATIVE (NEGATIVE); PROTEIN,URINE TRACE mg/dL (NEGATIVE); UROBILINOGEN,URINE 0.2 (NORMAL) E.U./dL (NORMAL)
[2018-07-27 00:39] LABS: ALBUMIN 4.6 g/dL (3.2-5.5); ALBUMIN/GLOBULIN RATIO 1.5 (1.0-2.2); BILIRUBIN,TOTAL 0.7 mg/dL (0.2-1.0); CALCIUM 10.1 mg/dL (8.5-10.3); CREATININE 0.8 mg/dL (0.4-1.0); TOTAL PROTEIN 7.6 g/dL (6.7-8.2)
[2018-07-27 00:44] LABS: CLARITY,URINE HAZY (CLEAR)
[2018-07-27] MEDS ORDERED: LORazepam 0.5 MG TABLET PO STA (00:50)
[2018-07-27 00:55] LABS: BACTERIA,URINE Many /HPF (None Seen); SQUAMOUS EPITHELIAL CELL,UR MOD Squamous (<= Few)
[2018-07-27] MEDS ORDERED: KETOROLAC 30 MG/ML VIAL IVP STA (02:21)
[2018-07-27] MEDS ORDERED: DEXAMETHASONE 10 MG/ML VIAL IVP STA (02:21)
[2018-07-27] MEDS ORDERED: SODIUM CHLORIDE 0.9% 1,000 ML IV ONE (02:21)
[2018-07-27] MEDS ORDERED: cefTRIAXone 1 GM in SODIUM CHLORIDE 0.9% MINIBAG 100 ML IV STA (02:21)
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
[2018-07-27] MEDS ORDERED: LORazepam 2 MG/ML VIAL IVP STA (02:59)
[2018-07-27 03:09] LABS: HCG UR QUAL NEGATIVE
[2018-07-27 05:09] VITALS: BP 118/76
== END 2018-07-27 05:09 | disposition home or self-care (01) ==
LOC: ED 23:27
DX: E86.0 Dehydration (principal); N30.01 Acute cystitis with hematuria; H66.002 Acute suppurative otitis media without spontaneous rupture of ear drum, left ear; E03.9 Hypothyroidism, unspecified
CPT/HCPCS: 36415; 80053; 81001; 81025; 83690; 85025; 87275; 87276; 96361; 96365; 96375; 99283; 99284; A9270; J2060; 81003; 87086

== ENCOUNTER 2018-10-18 19:50 | Emergency (ER) | payer BC ==
[2018-10-18] MEDS ORDERED: LORazepam 2 MG/ML VIAL IVP STA (19:51)
--- NOTE | 2018-10-18 19:57 | ED Physician Documentation ---
History of Present Illness - Stated complaint Stated Complaint: POSS SEIZURES - History obtained from History obtained from: Patient - History of Present Illness Timing: Today Pain level max: 0 Pain level now: 0 Improved by: nothing Worsened by: nothing - Additonal information Additional information: 23-year-old female states that she feels like she is having a panic attack. Has a long history of anxiety. She thinks she may be having seizures as well, but is cooperative and talking throughout these. She is also ambulating. Normally takes clonazepam. No headache. No head injury. No abdominal pain or vomiting. 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 : None HEENT: None Psych: Depression, Anxiety, Post traumatic stress disorder, Other Musculoskeletal: None Derm: None - Past Surgical History Past Surgical History: Yes - Present Medications Home Medications: Ambulatory Orders Medication Instructions Recorded Confirmed Fluoxetine HCl 2 tab PO DAILY 07/05/18 07/05/18 Hydrocodone/Acetaminophen [[place] 1 each PO Q6H PRN #15 tablet 07/05/18 5-325 Tablet] LORazepam [Ativan] 1 mg PO BID PRN #10 tablet 07/05/18 Methocarbamol [Robaxin] 500 mg PO Q6H PRN #30 tablet 07/05/18 Naproxen 500 mg PO BID #20 tablet 07/05/18 Trazodone HCl 1 - 2 tab PO QPM 07/05/18 07/05/18 clonazePAM [Clonazepam] 1 mg PO TID 07/05/18 07/05/18 hydrOXYzine HCl [Hydroxyzine HCl] 1 tab PO TID PRN 07/05/18 07/05/18 Amox/Clav 875/125 [Augmentin] 1 each PO Q12H #20 tablet 07/27/18 LORazepam [Ativan] 1 mg PO Q6HR PRN #20 tablet 02/24/19 Ondansetron Odt [Zofran] 4 mg TL Q6H PRN #10 tablet 07/27/18 - Allergies Allergies/Adverse Reactions: Allergies Allergy/AdvReac Type Severity Reaction Status Date / Time bupropion Allergy Anaphylaxis Verified 07/05/18 06:25 ibuprofen Allergy Anaphylaxis Verified 07/05/18 06:25 - Social History Does the pt smoke?: No Smoking Status: Never smoker Does the pt drink ETOH?: No Does the pt have substance abuse?: No - Immunizations Immunizations are current?: Yes - POLST Patient has POLST: No PD ED PE NORMAL - Vitals Vital signs reviewed: Yes - General General: Alert and oriented X 3, Other (anxious, smells of EtOH) - HEENT HEENT: PERRL, Moist mucous membranes, Pharynx benign - Neck Neck: Supple, no meningeal sign - Cardiac Cardiac: Strong equal pulses, Other (tachycardic) - Respiratory Respiratory: No respiratory distress, Clear bilaterally - Abdomen Abdomen: Soft, Non tender, Non distended - Derm Derm: Warm and dry - Extremities Extremities: No edema, No calf tenderness / cord - Neuro Neuro: Alert and oriented X 3 - Psych Psych: Normal mood, Normal affect Results - Vitals Vitals: Vital Signs - 24 hr 10/18/18 10/18/18 10/18/18 19:50 20:15 20:58 Temperature 37.2 C Heart Rate 128 H 115 H 112 H Respiratory 22 16 18 Rate Blood Pressure 114/78 115/75 130/84 H O2 Saturation 98 97 98 10/18/18 10/18/18 21:10 22:55 Temperature Heart Rate 120 H 93 Respiratory 16 16 Rate Blood Pressure 125/72 108/74 O2 Saturation 99 98 Oxygen O2 Source Room air - Labs Labs: Laboratory Tests 10/18/18 10/18/18 10/18/18 19:50 19:50 19:50 WBC 7.9 RBC 4.50 Hgb 15.0 Hct 42.6 MCV 94.6 MCH 33.3 H MCHC 35.2 RDW 13.8 Plt Count 321 MPV 8.2 Neut # (Auto) 4.2 Lymph # (Auto) 2.9 [place] # (Auto) 0.7 Eos # (Auto) 0.1 Baso # (Auto) 0.0 Absolute Nucleated RBC 0.00 Nucleated RBC % 0.0 Sodium 141 Potassium 4.0 Chloride 105 Carbon Dioxide 24 Anion Gap 12.0 BUN 11 Creatinine 0.9 Estimated GFR (MDRD) 78 L Glucose 104 H Calcium 9.3 Total Bilirubin 0.2 AST 30 ALT 42 Alkaline Phosphatase 61 Total Protein 8.3 H Albumin 4.7 Globulin 3.6 Albumin/Globulin Ratio 1.3 Lipase 30 Urine Color Urine Clarity Urine pH Ur Specific [place] Urine Protein Urine Glucose (UA) Urine Ketones Urine Occult Blood Urine Nitrite Urine Bilirubin Urine Urobilinogen Ur Leukocyte Esterase Ur Microscopic Review Urine Culture Comments Urine HCG, Qual Salicylates < 6.0 Urine Opiates Screen Ur Oxycodone Screen Urine Methadone Screen Ur Propoxyphene Screen Acetaminophen < 10 L Ur Barbiturates Screen Ur Tricyclics Screen Ur Phencyclidine Scrn Ur Amphetamine Screen U Methamphetamines Scrn U Benzodiazepines Scrn Urine Cocaine Screen U Cannabinoids Screen Ethyl Alcohol 349.8 10/18/18 10/18/18 20:44 20:44 WBC RBC Hgb Hct MCV MCH MCHC RDW Plt Count MPV Neut # (Auto) Lymph # (Auto) [place] # (Auto) Eos # (Auto) Baso # (Auto) Absolute Nucleated RBC Nucleated RBC % Sodium Potassium Chloride Carbon Dioxide Anion Gap BUN Creatinine Estimated GFR (MDRD) Glucose Calcium Total Bilirubin AST ALT Alkaline Phosphatase Total Protein Albumin Globulin Albumin/Globulin Ratio Lipase Urine Color YELLOW Urine Clarity CLEAR Urine pH 6.0 Ur Specific [place] <=1.005 Urine Protein NEGATIVE Urine Glucose (UA) NEGATIVE Urine Ketones NEGATIVE Urine Occult Blood NEGATIVE Urine Nitrite NEGATIVE Urine Bilirubin NEGATIVE Urine Urobilinogen 0.2 (NORMAL) Ur Leukocyte Esterase NEGATIVE Ur Microscopic Review NOT INDICATED Urine Culture Comments NOT INDICATED Urine HCG, Qual NEGATIVE Salicylates Urine Opiates Screen NEGATIVE Ur Oxycodone Screen NEGATIVE Urine Methadone Screen NEGATIVE Ur Propoxyphene Screen NEGATIVE Acetaminophen Ur Barbiturates Screen NEGATIVE Ur Tricyclics Screen NEGATIVE Ur Phencyclidine Scrn NEGATIVE Ur Amphetamine Screen NEGATIVE U Methamphetamines Scrn NEGATIVE U Benzodiazepines Scrn NEGATIVE Urine Cocaine Screen NEGATIVE U Cannabinoids Screen NEGATIVE Ethyl Alcohol PD MEDICAL DECISION MAKING - ED course Complexity details: reviewed results, re-evaluated patient, considered differential, d/w patient, d/w family ED course: 23-year-old female with acute alcohol intoxication. She sobered slightly in the emergency department. Has no drowsiness, steady gait and no slurring of her speech. Her boyfriend would like to take her home at this time. Patient and boyfriend counseled regarding signs and symptoms for which I believe and urgent re-evaluation would be necessary. Patient and boyfriend with good understanding of and agreement to plan and is comfortable going home at this time This document was made in part using voice recognition software. While efforts are made to proofread this document, sound alike and grammatical errors may occur. Departure - Departure Disposition: Home, Self Care Clinical Impression: Anxiety Alcohol intoxication Qualifiers: Complication of substance-induced condition: uncomplicated Qualified Code(s): F10.920 - Alcohol use, unspecified with intoxication, uncomplicated Condition: Good Instructions: ED Alcohol Intoxication, ED Panic Attack Follow-Up: your,doctor in 1 week [Other] Comments: Follow-up with your doctor to discuss changing your anxiety medications or adjusting them. Return if you worsen. Refrain from alcohol. Discharge Date/Time: 10/18/18 23:19
[2018-10-18 19:59] LABS: BASOPHILS % (AUTO) 0.5 %; EOSINOPHILS # (AUTO) 0.1 10^3/uL (0.0-0.7); EOSINOPHILS % (AUTO) 0.7 %; LYMPHOCYTES # (AUTO) 2.9 10^3/uL (1.5-3.5); LYMPHOCYTES % (AUTO) 36.5 %; MEAN CORPUSCULAR HEMOGLOBIN 33.3 pg (27.0-31.0); MEAN CORPUSCULAR HGB CONC 35.2 g/dL (32.0-36.0); MEAN CORPUSCULAR VOLUME 94.6 fL (81.0-99.0); MEAN PLATELET VOLUME 8.2 fL (7.9-10.8); MONOCYTES # (AUTO) 0.7 10^3/uL (0.0-1.0); MONOCYTES % (AUTO) 8.5 %; NEUTROPHILS # (AUTO) 4.2 10^3/uL (1.5-6.6); NEUTROPHILS % (AUTO) 53.8 %; PLT - PLATELET COUNT 321 10^3/uL (130-450); RED CELL DISTRIBUTION WIDTH 13.8 % (12.0-15.0); WHITE BLOOD COUNT 7.9 x10^3/uL (4.8-10.8)
[2018-10-18 20:12] LABS: ALBUMIN 4.7 g/dL (3.2-5.5); ALBUMIN/GLOBULIN RATIO 1.3 (1.0-2.2); BILIRUBIN,TOTAL 0.2 mg/dL (0.2-1.0); CALCIUM 9.3 mg/dL (8.5-10.3); CREATININE 0.9 mg/dL (0.4-1.0); TOTAL PROTEIN 8.3 g/dL (6.7-8.2)
[2018-10-18 20:56] LABS: ACETAMINOPHEN < 10 ug/mL (10-30); SALICYLATE < 6.0 mg/dL
[2018-10-18 21:49] LABS: MUDS CUTOFF CONCENTRATIONS CUTOFF CONC BELOW:
[2018-10-18 21:57] LABS: BILIRUBIN,URINE NEGATIVE (NEGATIVE); GLUCOSE, URINE (UA) NEGATIVE (NEGATIVE); KETONES,URINE (UA) NEGATIVE (NEGATIVE); LEUKOCYTE ESTERASE, URINE NEGATIVE (NEGATIVE); NITRITE,URINE NEGATIVE (NEGATIVE); OCCULT BLOOD,URINE NEGATIVE (NEGATIVE); PROTEIN,URINE NEGATIVE (NEGATIVE); UROBILINOGEN,URINE 0.2 (NORMAL) E.U./dL (NORMAL)
[2018-10-18 22:01] LABS: CLARITY,URINE CLEAR (CLEAR); HCG UR QUAL NEGATIVE
[2018-10-18 22:11] LABS: AMPHETAMINE SCREEN,URINE NEGATIVE (NEGATIVE); BENZODIAZEPINES SCREEN, URINE NEGATIVE (NEGATIVE); COCAINE SCREEN URINE NEGATIVE (NEGATIVE); METHAMPHETAMINES SCREEN, URINE NEGATIVE (NEGATIVE); OPIATE SCREEN, URINE NEGATIVE (NEGATIVE)
[2018-10-18 22:12] LABS: METHADONE SCREEN, URINE NEGATIVE (NEGATIVE); OXYCODONE SCREEN, URINE NEGATIVE (NEGATIVE); PROPOXYPHENE SCREEN, URINE NEGATIVE (NEGATIVE); TRICYCLIC ANTIDEPRESSANT,URINE NEGATIVE (NEGATIVE)
[2018-10-18 22:56] VITALS: BP 108/74
== END 2018-10-18 23:19 | disposition home or self-care (01) ==
LOC: ED 19:50
DX: F41.9 Anxiety disorder, unspecified (principal); F10.920 Alcohol use, unspecified with intoxication, uncomplicated
CPT/HCPCS: 36415; 80053; 80320; 80329; 81003; 81025; 83690; 85025; 96374; 99283; 99284; J2060; 80306; 80307; 81001; 87086

== ENCOUNTER 2018-12-21 22:13 | Emergency (ER) | payer BC ==
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
--- NOTE | 2018-12-22 00:15 | XRAY Report ---
Reason: injury, pain, tenderness Procedure Date: 12/21/2018 Accession Number: [id number] / [id number] Procedure: XR - Wrist 3 View RT CPT Code: FULL RESULT: EXAM: RIGHT WRIST RADIOGRAPHY EXAM DATE: 12/21/2018 11:35 PM. CLINICAL HISTORY: Injury. Pain. Tenderness. COMPARISON: None. TECHNIQUE: 3 views. FINDINGS: Bones: Normal. No fractures or bone lesions. Joints: Normal. No subluxations. Soft Tissues: Unremarkable. IMPRESSION: Normal wrist radiography. RADIA
[2018-12-22] MEDS ORDERED: traMADol 50 MG TABLET PO STA (00:55)
[2018-12-22 01:21] VITALS: BP 115/56
== END 2018-12-22 01:21 | disposition home or self-care (01) ==
LOC: ED 22:13
DX: S63.502A Unspecified sprain of left wrist, initial encounter (principal); S63.501A Unspecified sprain of right wrist, initial encounter; S16.1XXA Strain of muscle, fascia and tendon at neck level, initial encounter; Y04.8XXA Assault by other bodily force, initial encounter; Y93.01 Activity, walking, marching and hiking; Y92.009 Unspecified place in unspecified non-institutional (private) residence as the place of occurrence of the external cause
CPT/HCPCS: 73110; 99283; 99284; A9270

== ENCOUNTER 2019-01-19 18:46 | Emergency (ER) | payer BC ==
[2019-01-19 20:55] LABS: BILIRUBIN,URINE NEGATIVE (NEGATIVE); GLUCOSE, URINE (UA) NEGATIVE (NEGATIVE); KETONES,URINE (UA) NEGATIVE (NEGATIVE); LEUKOCYTE ESTERASE, URINE NEGATIVE (NEGATIVE); NITRITE,URINE NEGATIVE (NEGATIVE); OCCULT BLOOD,URINE NEGATIVE (NEGATIVE); PH,URINE 5.5 PH (5.0-7.5); PROTEIN,URINE NEGATIVE (NEGATIVE); UROBILINOGEN,URINE 0.2 (NORMAL) E.U./dL (NORMAL)
[2019-01-19 20:59] LABS: CLARITY,URINE CLEAR (CLEAR); HCG UR QUAL NEGATIVE
--- NOTE | 2019-01-19 21:10 | ED Physician Documentation ---
PD HPI SEIZURE - Stated complaint Stated Complaint: SEIZURE/POSS - Chief complaint Chief Complaint: General - History obtained from History obtained from: Patient - History of Present Illness Timing - onset: How many minutes ago (30) Witnessed: Witnessed Number of seizures: Single, Lasted minutes (1) Description of seizure activity: Generalized Injury during seizure: None Associated symptoms: Headache, Nausea / vomiting (for past week). No: Dyspnea History of seizures: Known seizure disorder (had onset of seizures just few months ago, with few so far. Had been on Keppra initially but still with seizures, so changed to Depakote. Has been on that for a month or so. visiting from [place], and has appt with Neurologist in 2 weeks back home.) Contributing factors: No: Off meds (she says she has been taking her Depakote.) Similar symptoms before: Diagnosis (presumed epilepsy.) Recently seen: Not recently seen Review of Systems Constitutional: denies: Fever, Chills Nose: denies: Rhinorrhea / runny nose, Congestion Throat: denies: Sore throat Respiratory: denies: Cough GI: reports: Nausea, Vomiting (for a week). denies: Abdominal Pain, Diarrhea : reports: LMP (6 weeks ago). 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 : None HEENT: None Psych: Depression, Anxiety, Post traumatic stress disorder, Other Musculoskeletal: None Derm: None - Past Surgical History Past Surgical History: Yes - Present Medications Home Medications: Ambulatory Orders Medication Instructions Recorded Confirmed hydrOXYzine HCl [Hydroxyzine HCl] 1 tab PO TID PRN 07/05/18 07/05/18 LORazepam [Ativan] 1 mg PO TID PRN #15 tablet 01/20/19 Ondansetron Odt [Zofran] 4 mg TL Q6H PRN #20 tablet 01/20/19 - Allergies Allergies/Adverse Reactions: Allergies Allergy/AdvReac Type Severity Reaction Status Date / Time bupropion Allergy Anaphylaxis Verified 01/19/19 18:54 ibuprofen Allergy Anaphylaxis Verified 01/19/19 18:54 - Social History Does the pt smoke?: No Smoking Status: Never smoker Does the pt drink ETOH?: No Does the pt have substance abuse?: No - Immunizations Immunizations are current?: Yes - POLST Patient has POLST: No PD ED PE NORMAL - Vitals Vital signs reviewed: Yes - General General: Alert and oriented X 3, No acute distress, Well developed/nourished - HEENT HEENT: Pharynx benign - Neck Neck: Supple, no meningeal sign, No adenopathy - Cardiac Cardiac: RRR, No murmur - Respiratory Respiratory: Clear bilaterally - Abdomen Abdomen: Soft, Non tender - Back Back: No CVA TTP - Derm Derm: Normal color, Warm and dry - Extremities Extremities: No tenderness to palpate, Normal ROM s pain, No edema, No calf tenderness / cord - Neuro Neuro: Alert and oriented X 3, 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 No: ST elevation c/w ischemia, ST depression - Labs Labs: Microbiology 01/19/19 22:00 Group A Strep Throat Culture - Preliminary Throat CULTURE IN PROGRESS. RESULTS TO FOLLOW. Laboratory Tests 01/19/19 01/19/19 01/19/19 19:40 19:40 21:50 WBC 4.3 L RBC 3.85 L Hgb 12.4 Hct 35.9 L MCV 93.2 MCH 32.2 H MCHC 34.5 RDW 13.1 Plt Count 152 MPV 9.3 Neut # (Auto) 2.9 Lymph # (Auto) 0.9 [place] # (Auto) 0.4 Eos # (Auto) 0.1 Baso # (Auto) 0.0 Absolute Nucleated RBC 0.00 Nucleated RBC % 0.0 Sodium Potassium Chloride Carbon Dioxide Anion Gap BUN Creatinine Estimated GFR (MDRD) Glucose Calcium Magnesium Total Bilirubin AST ALT Alkaline Phosphatase Total Protein Albumin Globulin Albumin/Globulin Ratio Lipase Urine Color YELLOW Urine Clarity CLEAR Urine pH 5.5 Ur Specific [place] 1.015 Urine Protein NEGATIVE Urine Glucose (UA) NEGATIVE Urine Ketones NEGATIVE Urine Occult Blood NEGATIVE Urine Nitrite NEGATIVE Urine Bilirubin NEGATIVE Urine Urobilinogen 0.2 (NORMAL) Ur Leukocyte Esterase NEGATIVE Ur Microscopic Review NOT INDICATED Urine Culture Comments NOT INDICATED Urine HCG, Qual NEGATIVE Last Dose Date Last Dose Time Urine Opiates Screen NEGATIVE Ur Oxycodone Screen NEGATIVE Urine Methadone Screen NEGATIVE Ur Propoxyphene Screen NEGATIVE Ur Barbiturates Screen NEGATIVE Valproic Acid Ur Tricyclics Screen NEGATIVE Ur Phencyclidine Scrn NEGATIVE Ur Amphetamine Screen NEGATIVE U Methamphetamines Scrn NEGATIVE U Benzodiazepines Scrn POSITIVE H Urine Cocaine Screen NEGATIVE U Cannabinoids Screen POSITIVE H Ethyl Alcohol Group A Strep Rapid 01/19/19 01/19/19 21:50 22:00 WBC RBC Hgb Hct MCV MCH MCHC RDW Plt Count MPV Neut # (Auto) Lymph # (Auto) [place] # (Auto) Eos # (Auto) Baso # (Auto) Absolute Nucleated RBC Nucleated RBC % Sodium 137 Potassium 3.6 Chloride 102 Carbon Dioxide 21 Anion Gap 14.0 H BUN 6 Creatinine 0.9 Estimated GFR (MDRD) 77 L Glucose 100 Calcium 9.3 Magnesium 1.8 Total Bilirubin 0.8 AST 39 ALT 40 Alkaline Phosphatase 25 L Total Protein 7.3 Albumin 4.2 Globulin 3.1 Albumin/Globulin Ratio 1.4 Lipase 28 Urine Color Urine Clarity Urine pH Ur Specific [place] Urine Protein Urine Glucose (UA) Urine Ketones Urine Occult Blood Urine Nitrite Urine Bilirubin Urine Urobilinogen Ur Leukocyte Esterase Ur Microscopic Review Urine Culture Comments Urine HCG, Qual Last Dose Date UNKNOWN Last Dose Time UNKNOWN Urine Opiates Screen Ur Oxycodone Screen Urine Methadone Screen Ur Propoxyphene Screen Ur Barbiturates Screen Valproic Acid < 10.0 Ur Tricyclics Screen Ur Phencyclidine Scrn Ur Amphetamine Screen U Methamphetamines Scrn U Benzodiazepines Scrn Urine Cocaine Screen U Cannabinoids Screen Ethyl Alcohol < 5.0 Group A Strep Rapid Negative PD MEDICAL DECISION MAKING - ED course Complexity details: reviewed results (depakote level was low, so given IV dose. Ativan for anxiety. ), considered differential, d/w patient Departure - Departure Disposition: 01 Home, Self Care Clinical Impression: Seizure, Seizure disorder Nausea and vomiting Qualifiers: Vomiting type: unspecified Vomiting Intractability: non-intractable Qualified Code(s): R11.2 - Nausea with vomiting, unspecified Condition: Stable Record reviewed to determine appropriate education?: Yes Instructions: ED Nausea Vomiting Prescriptions: LORazepam [Ativan] 1 mg PO TID PRN #15 tablet PRN Reason: Alcohol Withdrawal Ondansetron Odt [Zofran] 4 mg TL Q6H PRN #20 tablet PRN Reason: Nausea / Vomiting Comments: Stay well-hydrated. Your Depakote level was low so I would increase your daily Depakote to 2 tablets in the morning and 2 at night (which is an increase from 1 in the morning and 2 at night). Use ondansetron if needed for nausea. Continue other usual medicines. Ativan 3 times a day if needed for anxiety or premonitory feelings of seizure. Follow-up with your neurologist in [place] when back home as planned and the further work-up. Discharge Date/Time: 01/20/19 01:38
[2019-01-19 21:37] LABS: MUDS CUTOFF CONCENTRATIONS CUTOFF CONC BELOW:
[2019-01-19] MEDS ORDERED: ONDANSETRON 4 MG/2 ML VIAL IVP STA (21:41)
[2019-01-19] MEDS ORDERED: SODIUM CHLORIDE 0.9% 1,000 ML IV ONE (21:41)
[2019-01-19] MEDS ORDERED: METOCLOPRAMIDE 10 MG/2 ML VIAL IVP STA (21:42)
[2019-01-19] MEDS ORDERED: LORazepam 2 MG/ML VIAL IVP STA ×2 (21:42→23:50)
[2019-01-19] MEDS ORDERED: DEXAMETHASONE 10 MG/ML VIAL IVP STA (21:42)
[2019-01-19] MEDS ORDERED: FAMOTIDINE 20 MG/2 ML VIAL IVP STA (21:42)
[2019-01-19] MEDS ORDERED: KETOROLAC 15 MG/ML VIAL IVP STA (21:43)
[2019-01-19 21:48] LABS: AMPHETAMINE SCREEN,URINE NEGATIVE (NEGATIVE); BENZODIAZEPINES SCREEN, URINE POSITIVE (NEGATIVE); COCAINE SCREEN URINE NEGATIVE (NEGATIVE); METHADONE SCREEN, URINE NEGATIVE (NEGATIVE); METHAMPHETAMINES SCREEN, URINE NEGATIVE (NEGATIVE); OPIATE SCREEN, URINE NEGATIVE (NEGATIVE); OXYCODONE SCREEN, URINE NEGATIVE (NEGATIVE); PROPOXYPHENE SCREEN, URINE NEGATIVE (NEGATIVE); TRICYCLIC ANTIDEPRESSANT,URINE NEGATIVE (NEGATIVE)
[2019-01-19 21:54] LABS: BASOPHILS % (AUTO) 0.5 %; EOSINOPHILS # (AUTO) 0.1 10^3/uL (0.0-0.7); EOSINOPHILS % (AUTO) 1.4 %; HGB - HEMOGLOBIN 12.4 g/dL (12.0-16.0); LYMPHOCYTES # (AUTO) 0.9 10^3/uL (1.5-3.5); LYMPHOCYTES % (AUTO) 21.6 %; MEAN CORPUSCULAR HEMOGLOBIN 32.2 pg (27.0-31.0); MEAN CORPUSCULAR HGB CONC 34.5 g/dL (32.0-36.0); MEAN CORPUSCULAR VOLUME 93.2 fL (81.0-99.0); MEAN PLATELET VOLUME 9.3 fL (7.9-10.8); MONOCYTES # (AUTO) 0.4 10^3/uL (0.0-1.0); MONOCYTES % (AUTO) 9.3 %; NEUTROPHILS # (AUTO) 2.9 10^3/uL (1.5-6.6); PLT - PLATELET COUNT 152 10^3/uL (130-450); RED BLOOD COUNT 3.85 10^6/uL (4.20-5.40); RED CELL DISTRIBUTION WIDTH 13.1 % (12.0-15.0); WHITE BLOOD COUNT 4.3 x10^3/uL (4.8-10.8)
[2019-01-19 22:11] LABS: ALBUMIN 4.2 g/dL (3.2-5.5); ALBUMIN/GLOBULIN RATIO 1.4 (1.0-2.2); ALKALINE PHOSPHATASE 25 IU/L (42-121); ALT ALANINE AMINOTRANSFERASE 40 IU/L (10-60); AST ASPARTATE AMINOTRANSFERASE 39 IU/L (10-42); BILIRUBIN,TOTAL 0.8 mg/dL (0.2-1.0); BUN - BLOOD UREA NITROGEN 6 mg/dL (6-20); CALCIUM 9.3 mg/dL (8.5-10.3); CARBON DIOXIDE - CO2 21 mmol/L (21-32); CHLORIDE 102 mmol/L (101-111); CREATININE 0.9 mg/dL (0.4-1.0); GFR - MDRD 77 (>89); GLUCOSE 100 mg/dL (70-100); LIPASE 28 U/L (22-51); MAGNESIUM 1.8 mg/dL (1.7-2.8); SODIUM 137 mmol/L (135-145); TOTAL PROTEIN 7.3 g/dL (6.7-8.2)
[2019-01-19 22:12] LABS: VALPROIC ACID (DEPAKOTE) < 10.0 ug/mL
[2019-01-19] MEDS ORDERED: VALPROATE INJ 500 MG in SODIUM CHLORIDE 0.9% 100ML 100 ML IV STA (22:36)
[2019-01-19] MEDS ORDERED: MORPHINE 10 MG/ML VIAL IVP STA (23:50)
[2019-01-20] MEDS ORDERED: FLUCONAZOLE 100 MG TABLET PO STA (00:33)
[2019-01-20 01:36] VITALS: BP 132/79
== END 2019-01-20 01:38 | disposition home or self-care (01) ==
LOC: ED 18:46
DX: G40.909 Epilepsy, unspecified, not intractable, without status epilepticus (principal); R11.2 Nausea with vomiting, unspecified; R00.0 Tachycardia, unspecified; F41.9 Anxiety disorder, unspecified
CPT/HCPCS: 36415; 80053; 80164; 80320; 81003; 81025; 83690; 83735; 85025; 87070; 87430; 96361; 96365; 96375; 96376; 99284; 99285; A9270; J2060; J2765; 80306; 81001; 87086

== ENCOUNTER 2019-03-19 16:10 | Emergency (ER) | payer BC ==
[2019-03-19 16:23] VITALS: BP 152/109
[2019-03-19] MEDS ORDERED: LORazepam 2 MG/ML VIAL IM STA (16:37)
--- NOTE | 2019-03-19 16:57 | ED Physician Documentation ---
PD HPI SEIZURE - Stated complaint Stated Complaint: SEIZURE - Chief complaint Chief Complaint: Neuro - History obtained from History obtained from: Patient, Family - History of Present Illness Timing - onset: Today Witnessed: Unwitnessed Number of seizures: Lasted - seconds Description of seizure activity: Generalized Injury during seizure: None Associated symptoms: Other (ANXIETY) History of seizures: Known seizure disorder Contributing factors: Out of meds Similar symptoms before: Diagnosis (siezure disorder) Recently seen: Not recently seen - Additional information Additional information: 24-year-old female with a history of anxiety has developed a seizure disorder over the summer and she generalized tonic-clonic seizures. She has not been into see the neurologist as yet she has an appointment next month. She is been on some Depakote she is taking about 1500 mg/day and she is out of her medications. She has had for seizures today witnessed by her boyfriend. She states that she has generalized seizure and that she usually will take some Klonopin after a seizure. She does not have access to her Klonopin as her pare nts are on vacation and she usually keeps the medication at their house. She is out of her Depakote. 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 03/19/19 clonazePAM [Klonopin] 2 mg PO ONCE #12 tablet 03/19/19 - Allergies Allergies/Adverse Reactions: Allergies Allergy/AdvReac Type Severity Reaction Status Date / Time bupropion Allergy Anaphylaxis Verified 01/19/19 18:54 ibuprofen Allergy Anaphylaxis Verified 01/19/19 18:54 - Social History Does the pt smoke?: No Smoking Status: Never smoker Does the pt drink ETOH?: No Does the pt have substance abuse?: No - Immunizations Immunizations are current?: Yes - POLST Patient has POLST: No PD ED PE NORMAL - Vitals Vital signs reviewed: Yes - General General: Alert and oriented X 3, Well developed/nourished, Other (hyperventi lating and appears acutely anxious ) - HEENT HEENT: Atraumatic, PERRL, EOMI, Ears normal, Moist mucous membranes, Pharynx benign, Dentition benign - Neck Neck: Supple, no meningeal sign, No bony TTP - Cardiac Cardiac: RRR, No murmur - Respiratory Respiratory: No respiratory distress, Clear bilaterally - Abdomen Abdomen: Soft, Non tender - Back Back: No CVA TTP, No spinal TTP - Derm Derm: Normal color, Warm and dry, No rash - Extremities Extremities: No deformity, No edema - Neuro Neuro: Alert and oriented X 3, room cleaner 2-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, No motor deficit, No sensory deficit, Normal speech Eye Opening: Spontaneous Motor: Obeys Commands Verbal: Oriented GCS Score: 15 - Psych Psych: Normal affect, Other (mood is anxious) Results - Vitals Vitals: Vital Signs - 24 hr 03/19/19 16:12 Temperature 98.1 C H Heart Rate 102 H Respiratory 20 Rate Blood Pressure 152/109 H O2 Saturation 100 Oxygen O2 Source Room air PD MEDICAL DECISION MAKING - ED course Complexity details: reviewed old records, considered differential, d/w patient, d/w family ED course: 24-year-old female with a history of seizure disorder [facility] and she has now had seizure. She arrives to the emergency department hyperventilating appears quite anxious. She is administered Ativan 1 mg IM. We will refill her seizure medicine and her post seizure medication as well. Departure - Departure Disposition: 01 Home, Self Care Clinical Impression: Seizure disorder, Hyperventilation syndrome Condition: Stable Instructions: ED Seizure Recurrent, ED Hyperventilation Syndrome Follow-Up: Zurdo Vogel MD [Primary Care Provider] - Prescriptions: clonazePAM [Klonopin] 2 mg PO ONCE #12 tablet Divalproex Sodium [Depakote] 1,500 mg PO DAILY #50 tablet.
== END 2019-03-19 17:32 | disposition home or self-care (01) ==
LOC: ED 16:10
DX: G40.909 Epilepsy, unspecified, not intractable, without status epilepticus (principal); T42.6X6A Underdosing of other antiepileptic and sedative-hypnotic drugs, initial encounter; Z91.138 Patient's unintentional underdosing of medication regimen for other reason; F45.8 Other somatoform disorders; F41.9 Anxiety disorder, unspecified
CPT/HCPCS: 96372; 99283; 99284; J2060

== ENCOUNTER 2019-04-15 17:56 | Outpatient (CLI) | payer BC | END 2019-04-15 17:57 | disposition critical access hospital (66) | LOC: EMS 17:56 | PROVIDERS: ATTEND Surgery | DX: R56.9 Unspecified convulsions (principal) | CPT/HCPCS: A0425; A0429 ==

== ENCOUNTER 2019-04-15 18:27 | Emergency (ER) | payer BC ==
--- NOTE | 2019-04-15 19:31 | ED Physician Documentation ---
PD HPI SEIZURE - Stated complaint Stated Complaint: SZ - Chief complaint Chief Complaint: Neuro - History obtained from History obtained from: Patient, EMS - History of Present Illness Timing - onset: Today (just CRUISE GUIDE) Witnessed: Witnessed Number of seizures: Single, Lasted minutes Description of seizure activity: Generalized Injury during seizure: No: Fell, Head injury, Neck injury Associated symptoms: Headache, Nausea / vomiting (had felt ill today with nausea and had vomited couple times. No diarrhea.), Other (anxious). No: Chest pain, Palpitations History of seizures: Known seizure disorder Contributing factors: Other (history of seizures. States has been taking seizure meds, with missing doses once in a while.). No: Off meds, Out of meds, Low blood sugar, Fever Similar symptoms before: Diagnosis (known seizure disorder. states will have headache and anxious afterward commonly. Had not had her meds today due to illness. Has seizures monthly on average, with them weekly the past month.) Recently seen: Not recently seen Review of Systems Constitutional: denies: Fever, Chills, Myalgias Nose: denies: Rhinorrhea / runny nose, Congestion Throat: denies: Sore throat Respiratory: denies: Cough GI: reports: Nausea (today), Vomiting. 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 03/19/19 clonazePAM [Klonopin] 2 mg PO ONCE #12 tablet 03/19/19 Cephalexin [Keflex] 500 mg PO Q6H #28 capsule 04/15/19 Hydrocodone/Acetaminophen [[place] 1 each PO Q6H PRN #15 tablet 04/15/19 5-325 Tablet] Ondansetron Odt [Zofran] 4 mg TL Q6H PRN #10 tablet 04/15/19 - Allergies Allergies/Adverse Reactions: Allergies Allergy/AdvReac Type Severity Reaction Status Date / Time bupropion Allergy Anaphylaxis Verified 04/15/19 18:29 ibuprofen Allergy Anaphylaxis Verified 04/15/19 18:29 - Social History Does the pt smoke?: No Smoking Status: Never smoker Does the pt drink ETOH?: No Does the pt have substance abuse?: No - Immunizations Immunizations are current?: Yes - POLST Patient has POLST: No PD ED PE NORMAL - Vitals Vital signs reviewed: Yes - General General: Alert and oriented X 3, Well developed/nourished, Other (seems some anxious) - HEENT HEENT: Atraumatic, Pharynx benign - Neck Neck: Supple, no meningeal sign, No adenopathy - Cardiac Cardiac: No murmur. 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, No motor deficit, No sensory deficit, Normal speech Eye Opening: Spontaneous Motor: Obeys Commands Verbal: Oriented GCS Score: 15 Results - Vitals Vitals: Oxygen O2 Source Room air - Labs Labs: Laboratory Tests 04/15/19 04/15/19 04/15/19 19:48 19:48 19:55 WBC 7.9 RBC 4.14 L Hgb 13.7 Hct 39.4 MCV 95.2 MCH 33.1 H MCHC 34.8 RDW 12.8 Plt Count 296 MPV 9.8 Neut # (Auto) 5.7 Lymph # (Auto) 1.6 [place] # (Auto) 0.6 Eos # (Auto) 0.0 Baso # (Auto) 0.0 Absolute Nucleated RBC 0.00 Nucleated RBC % 0.0 Sodium 140 Potassium 3.6 Chloride 104 Carbon Dioxide 23 Anion Gap 13.0 BUN 11 Creatinine 0.8 Estimated GFR (MDRD) 88 L Glucose 88 Calcium 9.7 Magnesium 1.8 Total Bilirubin 0.5 AST 25 ALT 38 Alkaline Phosphatase 21 L Total Protein 7.8 Albumin 4.6 Globulin 3.2 Albumin/Globulin Ratio 1.4 Lipase 21 L Urine Color YELLOW Urine Clarity CLOUDY Urine pH 7.0 Ur Specific [place] 1.020 Urine Protein NEGATIVE Urine Glucose (UA) NEGATIVE Urine Ketones 15 H Urine Occult Blood NEGATIVE Urine Nitrite POSITIVE H Urine Bilirubin NEGATIVE Urine Urobilinogen 0.2 (NORMAL) Ur Leukocyte Esterase NEGATIVE Urine RBC 0-5 Urine WBC 11-25 H Ur Squamous Epith Cells MOD Squamous H Urine Bacteria Many H Ur Microscopic Review INDICATED Urine Culture Comments NOT INDICATED Last Dose Date Not Reportable Last Dose Time Not Reportable Valproic Acid < 10.0 PD MEDICAL DECISION MAKING - ED course Complexity details: reviewed results, re-evaluated patient (she has very low med level, so could account for more often seizures recently, if not taking meds consistently. Also with UTI and illness currently. She is feeling better and taking PO here in ER. Feels able to go home. ), considered differential, d/w patient Departure - Departure Disposition: 01 , Self Care Clinical Impression: Seizure, Seizure disorder, Seizure secondary to subtherapeutic anticonvulsant medication UTI (urinary tract infection) Qualifiers: Urinary tract infection type: acute cystitis Hematuria presence: without hematuria Qualified Code(s): N30.00 - Acute cystitis without hematuria Condition: Stable Record reviewed to determine appropriate education?: Yes Instructions: ED UTI Cystitis Female Follow-Up: Zurdo Vogel MD [Primary Care Provider] - Prescriptions: Cephalexin [Keflex] 500 mg PO Q6H #28 capsule Hydrocodone/Acetaminophen [[place] 5-325 Tablet] 1 each PO Q6H PRN #15 tablet PRN Reason: Pain Ondansetron Odt [Zofran] 4 mg TL Q6H PRN #10 tablet PRN Reason: Nausea / Vomiting Comments: Your valproic acid level was low on blood testing. Be sure to take your medications regularly to reduce the incidence of seizures. You also have a urinary tract infection which is probably affecting the nausea and back pain that you been having. We will treat this with cephalexin and antibiotic as directed for a week. Use ondansetron if needed for nausea. Tylenol if needed for pains and add pain medicine if needed. Stay well-hydrated with small frequent fluids and try to eat regularly. Recheck if not improved well over the next few days and return sooner if worsening. We gave a dose of your Depakote in the IV here tonight but still take your usual medications starting in the morning. Discharge Date/Time: 04/15/19 22:36
[2019-04-15] MEDS ORDERED: SODIUM CHLORIDE 0.9% 1,000 ML IV ONE (19:36)
[2019-04-15] MEDS ORDERED: LORazepam 2 MG/ML VIAL IVP STA ×2 (19:37→21:02)
[2019-04-15] MEDS ORDERED: ONDANSETRON 4 MG/2 ML VIAL IVP STA (19:37)
[2019-04-15] MEDS ORDERED: ACETAMINOPHEN 325 MG TABLET PO STA (19:37)
[2019-04-15 19:58] LABS: BASOPHILS % (AUTO) 0.4 %; EOSINOPHILS % (AUTO) 0.3 %; HGB - HEMOGLOBIN 13.7 g/dL (12.0-16.0); LYMPHOCYTES # (AUTO) 1.6 10^3/uL (1.5-3.5); LYMPHOCYTES % (AUTO) 20.3 %; MEAN CORPUSCULAR HEMOGLOBIN 33.1 pg (27.0-31.0); MEAN CORPUSCULAR HGB CONC 34.8 g/dL (32.0-36.0); MEAN CORPUSCULAR VOLUME 95.2 fL (81.0-99.0); MEAN PLATELET VOLUME 9.8 fL (7.9-10.8); MONOCYTES # (AUTO) 0.6 10^3/uL (0.0-1.0); MONOCYTES % (AUTO) 7.1 %; NEUTROPHILS # (AUTO) 5.7 10^3/uL (1.5-6.6); NEUTROPHILS % (AUTO) 71.4 %; PLT - PLATELET COUNT 296 10^3/uL (130-450); RED BLOOD COUNT 4.14 10^6/uL (4.20-5.40); RED CELL DISTRIBUTION WIDTH 12.8 % (12.0-15.0); WHITE BLOOD COUNT 7.9 x10^3/uL (4.8-10.8)
[2019-04-15 20:11] LABS: BILIRUBIN,URINE NEGATIVE (NEGATIVE); GLUCOSE, URINE (UA) NEGATIVE (NEGATIVE); KETONES,URINE (UA) 15 mg/dL (NEGATIVE); LEUKOCYTE ESTERASE, URINE NEGATIVE (NEGATIVE); NITRITE,URINE POSITIVE (NEGATIVE); OCCULT BLOOD,URINE NEGATIVE (NEGATIVE); PROTEIN,URINE NEGATIVE (NEGATIVE); UROBILINOGEN,URINE 0.2 (NORMAL) E.U./dL (NORMAL)
[2019-04-15 20:16] LABS: ALBUMIN 4.6 g/dL (3.2-5.5); ALBUMIN/GLOBULIN RATIO 1.4 (1.0-2.2); ALKALINE PHOSPHATASE 21 IU/L (42-121); ALT ALANINE AMINOTRANSFERASE 38 IU/L (10-60); AST ASPARTATE AMINOTRANSFERASE 25 IU/L (10-42); BILIRUBIN,TOTAL 0.5 mg/dL (0.2-1.0); BUN - BLOOD UREA NITROGEN 11 mg/dL (6-20); CALCIUM 9.7 mg/dL (8.5-10.3); CARBON DIOXIDE - CO2 23 mmol/L (21-32); CHLORIDE 104 mmol/L (101-111); CREATININE 0.8 mg/dL (0.4-1.0); GFR - MDRD 88 (>89); GLUCOSE 88 mg/dL (70-100); LIPASE 21 U/L (22-51); MAGNESIUM 1.8 mg/dL (1.7-2.8); SODIUM 140 mmol/L (135-145); TOTAL PROTEIN 7.8 g/dL (6.7-8.2)
[2019-04-15 20:22] LABS: CLARITY,URINE CLOUDY (CLEAR)
[2019-04-15 20:23] LABS: BACTERIA,URINE Many /HPF (None Seen); RBC,URINE 0-5 /HPF (0-5); SQUAMOUS EPITHELIAL CELL,UR MOD Squamous (<= Few)
[2019-04-15 20:24] LABS: VALPROIC ACID (DEPAKOTE) < 10.0 ug/mL
[2019-04-15] MEDS ORDERED: cefTRIAXone 1 GM VIAL IVP STA (21:01)
[2019-04-15] MEDS ORDERED: MORPHINE 10 MG/ML VIAL IVP STA (21:02)
[2019-04-15] MEDS ORDERED: VALPROATE INJ 500 MG in SODIUM CHLORIDE 0.9% 100ML 100 ML IV STA (21:02)
[2019-04-15] MEDS ORDERED: ONDANSETRON ODT 4 MG Prepack 2 TL PRN (22:10)
[2019-04-15 22:33] VITALS: BP 117/66
== END 2019-04-15 22:36 | disposition home or self-care (01) ==
LOC: EDUNIT# → ED 18:27
DX: G40.909 Epilepsy, unspecified, not intractable, without status epilepticus (principal); T42.6X6A Underdosing of other antiepileptic and sedative-hypnotic drugs, initial encounter; Z91.128 Patient's intentional underdosing of medication regimen for other reason; N30.00 Acute cystitis without hematuria; R11.2 Nausea with vomiting, unspecified
CPT/HCPCS: 36415; 80053; 80164; 81001; 83690; 83735; 85025; 96361; 96374; 96375; 96376; 99284; 99285; A9270; J2060; 81003; 87086

== ENCOUNTER 2019-06-25 19:12 | Emergency (ER) | payer BC ==
[2019-06-25 19:35] LABS: BASOPHILS % (AUTO) 0.2 %; EOSINOPHILS # (AUTO) 0.1 10^3/uL (0.0-0.7); EOSINOPHILS % (AUTO) 2.1 %; HGB - HEMOGLOBIN 13.3 g/dL (12.0-16.0); LYMPHOCYTES % (AUTO) 18.4 %; MEAN CORPUSCULAR HEMOGLOBIN 32.6 pg (27.0-31.0); MEAN CORPUSCULAR HGB CONC 34.1 g/dL (32.0-36.0); MEAN CORPUSCULAR VOLUME 95.6 fL (81.0-99.0); MEAN PLATELET VOLUME 9.7 fL (7.9-10.8); MONOCYTES # (AUTO) 0.5 10^3/uL (0.0-1.0); MONOCYTES % (AUTO) 9.7 %; NEUTROPHILS # (AUTO) 3.6 10^3/uL (1.5-6.6); PLT - PLATELET COUNT 248 10^3/uL (130-450); RED BLOOD COUNT 4.08 10^6/uL (4.20-5.40); RED CELL DISTRIBUTION WIDTH 12.4 % (12.0-15.0); WHITE BLOOD COUNT 5.3 x10^3/uL (4.8-10.8)
[2019-06-25 19:48] LABS: ALBUMIN/GLOBULIN RATIO 1.3 (1.0-2.2); BILIRUBIN,TOTAL 0.2 mg/dL (0.2-1.0); CALCIUM 9.1 mg/dL (8.5-10.3); CREATININE 0.8 mg/dL (0.4-1.0); TOTAL PROTEIN 7.2 g/dL (6.7-8.2)
[2019-06-25 20:13] LABS: BILIRUBIN,URINE NEGATIVE (NEGATIVE); GLUCOSE, URINE (UA) NEGATIVE (NEGATIVE); KETONES,URINE (UA) NEGATIVE (NEGATIVE); LEUKOCYTE ESTERASE, URINE NEGATIVE (NEGATIVE); NITRITE,URINE NEGATIVE (NEGATIVE); OCCULT BLOOD,URINE NEGATIVE (NEGATIVE); PH,URINE 6.5 PH (5.0-7.5); PROTEIN,URINE NEGATIVE (NEGATIVE); UROBILINOGEN,URINE 2 E.U./dL (NORMAL)
[2019-06-25 20:20] LABS: CLARITY,URINE HAZY (CLEAR); HCG UR QUAL NEGATIVE
[2019-06-25 20:21] LABS: BACTERIA,URINE Few /HPF (None Seen); RBC,URINE 0-5 /HPF (0-5); SQUAMOUS EPITHELIAL CELL,UR MANY Squamous (<= Few)
--- NOTE | 2019-06-25 20:35 | ED Physician Documentation ---
History of Present Illness - Stated complaint Stated Complaint: LOWER BACK PX - Chief complaint Chief Complaint: Abd Pain - History obtained from History obtained from: Patient (Patient is a 24-year-old female who presents with vague symptoms to include lower back pain the patient reports that recently she was treated for urinary tract infection she completed her antibiotics 5 days agoNow is complaining of diffuse lower back pain without fevers no dysuria or hematuria no lower extremity weakness no bowel or bladder dysfunction no saddle anesthesia no history of IV drug abuse and no history of spinal surgery.) Review of Systems Constitutional: reports: Reviewed and negative Eyes: reports: Reviewed and negative Ears: reports: Reviewed and negative Nose: reports: Reviewed and negative Throat: reports: Reviewed and negative Cardiac: reports: Reviewed and negative Respiratory: reports: Reviewed and negative GI: reports: Reviewed and negative : reports: Reviewed and negative Skin: reports: Reviewed and negative Musculoskeletal: reports: Back pain Neurologic: reports: Reviewed and negative Psychiatric: reports: Reviewed and negative Endocrine: reports: Reviewed and negative Immunocompromised: reports: Reviewed and negative PD PAST MEDICAL HISTORY - Past Medical History Past Medical History: Yes Cardiovascular: None Respiratory: None Neuro: Seizure disorder Endocrine/Autoimmune: HyPOthyroidism GI: None 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 : None HEENT: None Psych: Depression, Anxiety, Post traumatic stress disorder, Other Musculoskeletal: None Derm: None - Past Surgical History Past Surgical History: Yes - Present Medications Home Medications: Ambulatory Orders Medication Instructions Recorded Confirmed Divalproex Sodium [Depakote] 1,000 mg PO DAILY 06/25/19 06/25/19 Divalproex Sodium [Depakote] 500 mg PO QPM 06/25/19 06/25/19 - Allergies Allergies/Adverse Reactions: Allergies Allergy/AdvReac Type Severity Reaction Status Date / Time bupropion Allergy Anaphylaxis Verified 06/25/19 20:12 ibuprofen Allergy Anaphylaxis Verified 06/25/19 20:12 - Social History Does the pt smoke?: No Smoking Status: Never smoker Does the pt drink ETOH?: No Does the pt have substance abuse?: No - Immunizations Immunizations are current?: Yes - POLST Patient has POLST: No PD ED PE NORMAL - Vitals Vital signs reviewed: Yes - General General: Alert and oriented X 3, No acute distress - HEENT HEENT: PERRL - Neck Neck: Supple, no meningeal sign - Cardiac Cardiac: RRR, No murmur - Respiratory Respiratory: Clear bilaterally - Abdomen Abdomen: Normal bowel sounds, Soft, Non tender, Non distended - Back Back: Other (There is diffuse tenderness in bilateral lumbar paraspinal muscles there is no midline step-offs or deformities there is no midline tenderness to palpation she has full range of motion of the lumbar spine on passive and active range of motion in flexion extension side bending and rotation she has a negative straight leg test bilaterally) - Derm Derm: Warm and dry - Extremities Extremities: No deformity - Neuro Neuro: Alert and oriented X 3 - Psych Psych: Normal mood, Normal affect Results - Vitals Vitals: Vital Signs - 24 hr 06/25/19 06/25/19 06/25/19 19:18 21:19 23:38 Temperature 37 C 37.2 C 36.9 C Heart Rate 102 H 98 90 Respiratory 17 16 16 Rate Blood Pressure 138/92 H 126/70 114/61 O2 Saturation 99 97 95 06/26/19 06/26/19 00:39 02:28 Temperature 37.1 C 36.7 C Heart Rate 87 87 Respiratory 16 16 Rate Blood Pressure 111/65 113/64 O2 Saturation 95 97 Oxygen O2 Source Room air - Labs Labs: Laboratory Tests 06/25/19 06/25/19 06/25/19 19:31 19:31 20:06 WBC 5.3 RBC 4.08 L Hgb 13.3 Hct 39.0 MCV 95.6 MCH 32.6 H MCHC 34.1 RDW 12.4 Plt Count 248 MPV 9.7 Neut # (Auto) 3.6 Lymph # (Auto) 1.0 L [place] # (Auto) 0.5 Eos # (Auto) 0.1 Baso # (Auto) 0.0 Absolute Nucleated RBC 0.00 Nucleated RBC % 0.0 Sodium 136 Potassium 3.8 Chloride 102 Carbon Dioxide 26 Anion Gap 8.0 BUN 11 Creatinine 0.8 Estimated GFR (MDRD) 88 L Glucose 101 H Calcium 9.1 Total Bilirubin 0.2 AST 22 ALT 27 Alkaline Phosphatase 22 L Total Protein 7.2 Albumin 4.0 Globulin 3.2 Albumin/Globulin Ratio 1.3 Lipase 27 Urine Color YELLOW Urine Clarity HAZY Urine pH 6.5 Ur Specific [place] 1.025 Urine Protein NEGATIVE Urine Glucose (UA) NEGATIVE Urine Ketones NEGATIVE Urine Occult Blood NEGATIVE Urine Nitrite NEGATIVE Urine Bilirubin NEGATIVE Urine Urobilinogen 2 H Ur Leukocyte Esterase NEGATIVE Urine RBC 0-5 Urine WBC 0-3 Ur Squamous Epith Cells MANY Squamous H Urine Bacteria Few Ur Microscopic Review INDICATED Urine Culture Comments NOT INDICATED Urine HCG, Qual NEGATIVE PD MEDICAL DECISION MAKING - ED course Complexity details: other (Patient was was reexamined multiple times I explained and updated the results of the patient's including her CT scan as well as labs she reports her pain is minimal at this time and she would like to be discharged home she should have close follow-up.I did offer to admit this patient for observation for further testing however the patient reports she like to be discharged home at this time she does have medical decision-making capability and capacity.) Departure - Departure Disposition: Home, Self Care Clinical Impression: Back pain Qualifiers: Back pain location: low back pain Chronicity: unspecified Back pain laterality: unspecified Sciatica presence: unspecified whether sciatica present Qualified Code(s): M54.5 - Low back pain Condition: Good Instructions: ED Abdominal Pain Unkn Cause, ED Neck Back Pain General Follow-Up: YOUR,DOCTOR [Other]
[2019-06-25] MEDS ORDERED: ONDANSETRON 4 MG/2 ML VIAL IVP STA (20:57)
[2019-06-25] MEDS ORDERED: MORPHINE 2 MG/ML CARPUJECT IVP STA (20:57)
[2019-06-25] MEDS ORDERED: SODIUM CHLORIDE 0.9% 1,000 ML IV ONE (20:57)
[2019-06-26] MEDS ORDERED: MORPHINE 2 MG/ML CARPUJECT IVP STA (00:04)
[2019-06-26] MEDS ORDERED: ONDANSETRON 4 MG/2 ML VIAL IM STA (00:04)
[2019-06-26] MEDS ORDERED: cefTRIAXone 1 GM in SODIUM CHLORIDE 0.9% MINIBAG 100 ML IV STA (00:04)
[2019-06-26] MEDS ORDERED: IOVERSOL 320 100 ML VIAL IVP ONE ×2 (00:13→00:36)
[2019-06-26] MEDS ORDERED: ONDANSETRON 4 MG/2 ML VIAL IVP STA (00:30)
--- NOTE | 2019-06-26 00:54 | CT Report ---
Reason: b/l flank pain Procedure Date: 06/26/2019 Accession Number: [id number] / [id number] Procedure: CT - Abdomen/Pelvis W CPT Code: Final Report FULL RESULT: EXAM: CT ABDOMEN AND PELVIS EXAM DATE: 06/26/2019 12:37 AM. CLINICAL HISTORY: B/l flank pain. COMPARISONS: CHEST W11/09/2015 9:25 PM ABDOMEN W11/09/2015 8:45 PM. TECHNIQUE: Routine helical CT imaging was performed through the abdomen and pelvis. IV contrast: OPTI 320 100ML. Enteric contrast: No. Reconstructions: Coronal and sagittal. In accordance with CT protocol optimization, one or more of the following dose reduction techniques were utilized for this exam: automated exposure control, adjustment of mA and/or KV based on patient size, or use of iterative reconstructive technique. FINDINGS: Lung Bases: Unremarkable. Liver: Normal. No masses. Gallbladder/Bile Ducts: Unremarkable. Spleen: Normal. Pancreas: Normal. Adrenal Glands: Normal. Kidneys: Normal. No masses or hydronephrosis. Peritoneal Cavity/Bowel: Normal. No free fluid, free air or adenopathy. No masses or acute inflammatory process. The appendix is well visualized and normal. Colon is unremarkable. Pelvic Organs: The uterus is retroverted. Vasculature: No aneurysms or other significant abnormality. Bones: No significant abnormality. Other: None. IMPRESSION: Normal abdomen and pelvis CT. RADIA
[2019-06-26 02:29] VITALS: BP 113/64
== END 2019-06-26 02:35 | disposition home or self-care (01) ==
LOC: ED 19:12
DX: M54.5 Low back pain (principal)
CPT/HCPCS: 36415; 74177; 80053; 81001; 81025; 83690; 85025; 96361; 96365; 96375; 96376; 99283; 99284; Q9967; 81003; 84703; 85610; 85730; 87086

== ENCOUNTER 2019-07-18 21:19 | Outpatient (CLI) | payer BC | END 2019-07-18 21:20 | disposition critical access hospital (66) | LOC: EMS 21:19 | PROVIDERS: ATTEND Surgery | DX: F41.9 Anxiety disorder, unspecified (principal) | CPT/HCPCS: A0425; A0429 ==

== ENCOUNTER 2019-07-18 21:57 | Emergency (ER) | payer BC ==
[2019-07-18] MEDS ORDERED: LORazepam 1 MG TABLET PO STA (22:28)
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
[2019-07-18 23:40] VITALS: BP 130/95
== END 2019-07-18 23:45 | disposition home or self-care (01) ==
LOC: EDUNIT# → EEVIPCON 21:57 → ED 21:57
DX: F43.9 Reaction to severe stress, unspecified (principal); F41.9 Anxiety disorder, unspecified
CPT/HCPCS: 99283; 99284; J8499

== ENCOUNTER 2019-07-27 14:06 | Emergency (ER) | payer BC ==
--- NOTE | 2019-07-27 14:33 | ED Physician Documentation ---
PD HPI MHE - Stated complaint Stated Complaint: SI - Chief complaint Chief Complaint: MHE - History obtained from History obtained from: Patient - History of Present Illness Primary symptom: Suicidal ideation Timing - onset: Today Pain level max: 0 Pain level now: 0 - Additional information Additional information: Patient brought in by police for an involuntary psychiatric hold. Apparently she told her family that she was going to "end it all". Has a long history of depression and psychiatric issues. 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 HEENT: None Psych: Depression, Anxiety, Post traumatic stress disorder, Other Musculoskeletal: None Derm: None - Past Surgical History Past Surgical History: Yes - Present Medications Home Medications: Ambulatory Orders Medication Instructions Recorded Confirmed Divalproex Sodium [Depakote] 1,000 mg PO DAILY 06/25/19 06/25/19 Divalproex Sodium [Depakote] 500 mg PO QPM 06/25/19 06/25/19 - Allergies Allergies/Adverse Reactions: Allergies Allergy/AdvReac Type Severity Reaction Status Date / Time bupropion Allergy Anaphylaxis Verified 07/18/19 22:04 ibuprofen Allergy Anaphylaxis Verified 07/18/19 22:04 - Social History Does the pt smoke?: No Smoking Status: Never smoker Does the pt drink ETOH?: No Does the pt have substance abuse?: No - Immunizations Immunizations are current?: Yes - POLST Patient has POLST: No PD ED PE NORMAL - Vitals Vital signs reviewed: Yes - General General: Alert and oriented X 3, No acute distress, Well developed/nourished - HEENT HEENT: PERRL, Ears normal, Moist mucous membranes, Pharynx benign - Neck Neck: Supple, no meningeal sign - Cardiac Cardiac: RRR, Strong equal pulses - Respiratory Respiratory: No respiratory distress, Clear bilaterally - Abdomen Abdomen: Soft, Non tender, Non distended - Derm Derm: Warm and dry, No rash - Extremities Extremities: No edema - Neuro Neuro: Alert and oriented X 3 - Psych Psych: Normal mood, Normal affect Results - Vitals Vitals: Vital Signs - 24 hr 07/27/19 07/27/19 14:06 17:20 Temperature 36.9 C 36.4 C L Heart Rate 98 88 Respiratory 18 16 Rate Blood Pressure 121/92 H 136/71 H O2 Saturation 100 98 Oxygen O2 Source Room air - Labs Labs: Laboratory Tests 07/27/19 07/27/19 07/27/19 14:30 14:30 14:30 WBC 5.0 RBC 4.10 L Hgb 13.4 Hct 38.9 MCV 94.9 MCH 32.7 H MCHC 34.4 RDW 12.3 Plt Count 256 MPV 9.8 Neut # (Auto) 3.0 Lymph # (Auto) 1.4 L [place] # (Auto) 0.6 Eos # (Auto) 0.1 Baso # (Auto) 0.0 Absolute Nucleated RBC 0.00 Nucleated RBC % 0.0 Sodium 138 Potassium 3.8 Chloride 104 Carbon Dioxide 26 Anion Gap 8.0 BUN 14 Creatinine 0.9 Estimated GFR (MDRD) 77 L Glucose 102 H Calcium 9.4 Total Bilirubin 0.2 AST 41 ALT 48 Alkaline Phosphatase 26 L Total Protein 7.2 Albumin 4.1 Globulin 3.1 Albumin/Globulin Ratio 1.3 Lipase 34 TSH 3.91 Urine Color Urine Clarity Urine pH Ur Specific [place] Urine Protein Urine Glucose (UA) Urine Ketones Urine Occult Blood Urine Nitrite Urine Bilirubin Urine Urobilinogen Ur Leukocyte Esterase Ur Microscopic Review Urine Culture Comments Urine HCG, Qual Salicylates < 6.0 Urine Opiates Screen Ur Oxycodone Screen Urine Methadone Screen Ur Propoxyphene Screen Acetaminophen < 10 L Ur Barbiturates Screen Ur Tricyclics Screen Ur Phencyclidine Scrn Ur Amphetamine Screen U Methamphetamines Scrn U Benzodiazepines Scrn Urine Cocaine Screen U Cannabinoids Screen Ethyl Alcohol < 5.0 07/27/19 07/27/19 15:40 15:40 WBC RBC Hgb Hct MCV MCH MCHC RDW Plt Count MPV Neut # (Auto) Lymph # (Auto) [place] # (Auto) Eos # (Auto) Baso # (Auto) Absolute Nucleated RBC Nucleated RBC % Sodium Potassium Chloride Carbon Dioxide Anion Gap BUN Creatinine Estimated GFR (MDRD) Glucose Calcium Total Bilirubin AST ALT Alkaline Phosphatase Total Protein Albumin Globulin Albumin/Globulin Ratio Lipase TSH Urine Color YELLOW Urine Clarity CLEAR Urine pH 6.5 Ur Specific [place] 1.015 Urine Protein NEGATIVE Urine Glucose (UA) NEGATIVE Urine Ketones NEGATIVE Urine Occult Blood TRACE-INTA Urine Nitrite NEGATIVE Urine Bilirubin NEGATIVE Urine Urobilinogen 0.2 (NORMAL) Ur Leukocyte Esterase NEGATIVE Ur Microscopic Review NOT INDICATED Urine Culture Comments NOT INDICATED Urine HCG, Qual NEGATIVE Salicylates Urine Opiates Screen NEGATIVE Ur Oxycodone Screen NEGATIVE Urine Methadone Screen NEGATIVE Ur Propoxyphene Screen NEGATIVE Acetaminophen Ur Barbiturates Screen NEGATIVE Ur Tricyclics Screen NEGATIVE Ur Phencyclidine Scrn NEGATIVE Ur Amphetamine Screen NEGATIVE U Methamphetamines Scrn NEGATIVE U Benzodiazepines Scrn NEGATIVE Urine Cocaine Screen NEGATIVE U Cannabinoids Screen NEGATIVE Ethyl Alcohol PD MEDICAL DECISION MAKING - ED course Complexity details: reviewed results, re-evaluated patient, considered differential, d/w patient, 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 [facility] social work and they are willing to take her back there. She is frustrated with her level of anxiety. She has an appoint with her doctor tomorrow. She was given a dose of Ativan here and will need to follow-up with her doctor for further medication. Patient counseled regarding signs and symptoms for which I believe and urgent re-evaluation would be necessary. Patient with good understanding of and agreement to plan and is comfortable going home at this time This document was made in part using voice recognition software. While efforts are made to proofread this document, sound alike and grammatical errors may occur. Departure - Departure Disposition: 01 Home, Self Care Clinical Impression: Anxiety Condition: Good Instructions: ED Panic Attack Follow-Up: your,doctor tomorrow [Other] Comments: You need to follow up with your doctor for further care and to discuss your anxiety medications. Crisis Line and is available to talk to someone [email or web address] is also available to chat with someone online if you prefer. There are also many resources on this website and apps for your phone to help with your mental health You can also text the word START to [phone] to chat with someome via text. Discharge Date/Time: 07/27/19 17:24
[2019-07-27 14:40] LABS: BASOPHILS % (AUTO) 0.4 %; EOSINOPHILS # (AUTO) 0.1 10^3/uL (0.0-0.7); EOSINOPHILS % (AUTO) 1.6 %; HGB - HEMOGLOBIN 13.4 g/dL (12.0-16.0); LYMPHOCYTES # (AUTO) 1.4 10^3/uL (1.5-3.5); LYMPHOCYTES % (AUTO) 27.6 %; MEAN CORPUSCULAR HEMOGLOBIN 32.7 pg (27.0-31.0); MEAN CORPUSCULAR HGB CONC 34.4 g/dL (32.0-36.0); MEAN CORPUSCULAR VOLUME 94.9 fL (81.0-99.0); MEAN PLATELET VOLUME 9.8 fL (7.9-10.8); MONOCYTES # (AUTO) 0.6 10^3/uL (0.0-1.0); MONOCYTES % (AUTO) 11.1 %; NEUTROPHILS % (AUTO) 58.9 %; PLT - PLATELET COUNT 256 10^3/uL (130-450); RED CELL DISTRIBUTION WIDTH 12.3 % (12.0-15.0)
[2019-07-27 14:56] LABS: ACETAMINOPHEN < 10 ug/mL (10-30); ALBUMIN 4.1 g/dL (3.2-5.5); ALBUMIN/GLOBULIN RATIO 1.3 (1.0-2.2); ALKALINE PHOSPHATASE 26 IU/L (42-121); ALT ALANINE AMINOTRANSFERASE 48 IU/L (10-60); AST ASPARTATE AMINOTRANSFERASE 41 IU/L (10-42); BILIRUBIN,TOTAL 0.2 mg/dL (0.2-1.0); BUN - BLOOD UREA NITROGEN 14 mg/dL (6-20); CALCIUM 9.4 mg/dL (8.5-10.3); CARBON DIOXIDE - CO2 26 mmol/L (21-32); CHLORIDE 104 mmol/L (101-111); CREATININE 0.9 mg/dL (0.4-1.0); GFR - MDRD 77 (>89); GLUCOSE 102 mg/dL (70-100); LIPASE 34 U/L (22-51); SALICYLATE < 6.0 mg/dL; SODIUM 138 mmol/L (135-145); TOTAL PROTEIN 7.2 g/dL (6.7-8.2)
[2019-07-27 15:45] LABS: MUDS CUTOFF CONCENTRATIONS CUTOFF CONC BELOW:
[2019-07-27 15:46] LABS: BILIRUBIN,URINE NEGATIVE (NEGATIVE); GLUCOSE, URINE (UA) NEGATIVE (NEGATIVE); KETONES,URINE (UA) NEGATIVE (NEGATIVE); LEUKOCYTE ESTERASE, URINE NEGATIVE (NEGATIVE); NITRITE,URINE NEGATIVE (NEGATIVE); OCCULT BLOOD,URINE TRACE-INTA (NEGATIVE); PH,URINE 6.5 PH (5.0-7.5); PROTEIN,URINE NEGATIVE (NEGATIVE); UROBILINOGEN,URINE 0.2 (NORMAL) E.U./dL (NORMAL)
[2019-07-27 15:48] LABS: CLARITY,URINE CLEAR (CLEAR)
[2019-07-27 15:49] LABS: HCG UR QUAL NEGATIVE
[2019-07-27 15:58] LABS: AMPHETAMINE SCREEN,URINE NEGATIVE (NEGATIVE); BENZODIAZEPINES SCREEN, URINE NEGATIVE (NEGATIVE); COCAINE SCREEN URINE NEGATIVE (NEGATIVE); METHADONE SCREEN, URINE NEGATIVE (NEGATIVE); METHAMPHETAMINES SCREEN, URINE NEGATIVE (NEGATIVE); OPIATE SCREEN, URINE NEGATIVE (NEGATIVE); OXYCODONE SCREEN, URINE NEGATIVE (NEGATIVE); PROPOXYPHENE SCREEN, URINE NEGATIVE (NEGATIVE); TRICYCLIC ANTIDEPRESSANT,URINE NEGATIVE (NEGATIVE)
[2019-07-27] MEDS ORDERED: LORazepam 1 MG TABLET PO STA (17:05)
[2019-07-27 17:21] VITALS: BP 136/71
== END 2019-07-27 17:24 | disposition home or self-care (01) ==
LOC: ED 14:06
DX: F41.9 Anxiety disorder, unspecified (principal)
CPT/HCPCS: 36415; 80320; 80329; 81003; 81025; 83690; 99283; J8499; 80053; 80306; 80307; 81001; 84443; 85025; 87086